=== PATIENT | female | born 1940 | race Caucasian/White ===

== ENCOUNTER 2017-05-04 09:14 | Inpatient (IN) | payer MEDICARE, SELFPAY ==
[2017-05-04] VITALS (7 sets, daily range): BP systolic 124–160; BP diastolic 57–87; PULSE 91–112; RESP 18–26; TEMP 36.7–37.1; O2SAT 95–99; BMI 18.8; BMI 19.2; BMI 18.9
--- NOTE | 2017-05-04 09:27 | EKG12_ITS ---
Test Reason : Blood Pressure : / mmHG Vent. Rate : 094 BPM Atrial Rate : 094 BPM P-R Int : 138 ms QRS Dur : 074 ms QT Int : 346 ms P-R-T Axes : 073 082 078 degrees QTc Int : 432 ms Normal sinus rhythm Normal ECG Confirmed by CARLOS A AC, ANGELA ([id number]), editorial project manager LLOYD VILLAGRAN ([id number]) on 05/09/2017 3:27:13 PM Referred By: CRISTIAN Confirmed By:ANGELA STRAUSS MD
--- NOTE | 2017-05-04 09:27 | RAD_ITS ---
STUDY: X-RAY CHEST REASON FOR EXAM: Female, 76 years old. Cough and shortness of breath. TECHNIQUE: Single AP portable view of the chest. COMPARISON: February 10, 2017. FINDINGS: Cardiac monitoring leads are present. Lungs are hyperexpanded and clear. There is no demonstrated pleural abnormality. Normal size heart. There are calcified mediastinal and hilar lymph nodes. Normal visualized pulmonary arteries. There is atherosclerotic tortuosity of the aortic arch and descending thoracic aorta. There is demineralization of the osseous structures. Normal visualized ribs, clavicles, and shoulders. There is no demonstrated abnormality of the visualized soft tissue structures of the upper abdomen. RAD/Chest 1 View (Portable) IMPRESSION: COPD without radiographic evidence of acute cardiopulmonary disease. Electronically Signed: Alda Solano MD at 10:19 EST , Service support ,
--- NOTE | 2017-05-04 09:32 | ED.DCSUM_ITS ---
- ER Visit Summary Date of Service: 05/04/17 Chief Complaint: Shortness of breath History of Present Illness: The patient is a 76 F with history of COPD who is on 2 L of oxygen at night presents to the emergency department shortness of breath. She states that her symptoms began the day after [place]. She had mild shortness of breath and a scant cough. She states that they called Dr. Lopez, her advertising project manager and she was prescribed a prednisone burst. She is on day 3 of 40 mg. She feels like she is not getting any better. She has been using her inhalers with little relief. She is to the point where she has had to be on oxygen constantly at home. She denies any fevers but does admit to productive sputum. She has had no chest pain. She does describe exertional dyspnea but denies orthopnea. She states that she did have the flu last year, and at that time she was having fevers which she denies today. She did get a flu shot this year. She was concerned because she has had to use her oxygen constantly since her shortness of breath has started. Physical Examination: Vital signs reviewed General: Well-nourished, well-developed Head: Normocephalic, atraumatic Eyes: Pupils equal and reactive, extraocular muscles intact Neck, supple, no lymphadenopathy Heart: Regular rate and rhythm Respiratory: No distress, diminished with wheezing throughout Abdomen: Soft, nontender, nondistended, no peritoneal signs Back: Nontender Extremities: Nontender, no edema, no cords Skin: Normal color no rash Neuro: Alert and oriented, no focal or lateralizing deficits Test Results: Screening labs show mild leukocytosis which I feel is likely reactive especially given her recent prednisone use. Chest x-ray shows no infiltrate. Influenza negative. EKG unremarkable. Cardiac enzymes normal. Lactate normal. Emergency Department Course and Treatment: Patient presents with increasing shortness of breath. She does have a history of COPD but has had constant oxygen requirement over the past 2 days. She has dyspnea with wheezing in all [place]. Patient was given nebulized breathing treatments. She did seem to have almost a paradoxical reaction with the nebulized albuterol with increasing bronchospasm. These were stopped. The patient has persistent resting tachypnea. She has had productive sputum but no fevers or chills. I do feel that she has COPD exacerbation. Given her increased work of breathing and oxygen requirement I do for the patient requires admission. She will be started on Levaquin to cover respiratory pathogens. The patient will be admitted for further respiratory care. Treatment Plan: [] Disposition: Admission Impression: 1. COPD exacerbation This note was generated with [employer] dictation software. It may contain incorrect words, spelling, and punctuation that were not noted in review of the chart prior to signing ED Disposition - Plan for ED Patient: Chief Complaint: Shortness of Breath Referrals: Chicho Garcia DO [Primary Care Provider] -
[2017-05-04] MEDS: 0.9% Normal Saline 1,000 ML 150 ML IV (09:46)
[2017-05-04] MEDS: MethylPREDNISolone 125 MG/2 ML Vial IV (09:46)
[2017-05-04 09:47] LABS: Absolute Lymphocyte Count 0.84 X10^3/ul (0.83-4.51); Absolute Neutrophil Count 13.3 X10^3/uL (2.0-7.7); Basophil# 0.02 X10^3/uL; Basophil% 0.1 % (0-1); Lymphocyte # 0.84 X10^3/ul (4.0); Lymphocyte % 5.6 % (19-41); Mean Corp Hgb Conc 33.3 g/gl (32-36); Mean Corpuscular Hgb 31.2 pg (27.0-32.0); Mean Corpuscular Volume 93.6 fL (81-99); Mean Platelet Vol. 10.4 fl (6.2-12.0); Monocyte# 0.84 X10^3/uL; Monocyte% 5.6 % (0-10); Neutrophil # 13.32 X10^3/uL (2.7-7.7); Neutrophil % 88.2 % (47-70); POSITIVE COUNT NO; POSITIVE DIFFERENTIAL NO; POSITIVE MORPHOLOGY NO; Platelet Count 171 K/mm3 (150-450); RBC Distribution Width CV 13.9 % (11.6-14.6); Red Blood Count 4.81 M/mm3 (4.2-5.4); White Blood Count 15.1 K/mm3 (4.4-11.0)
[2017-05-04] MEDS: Albuterol 2.5 MG/3 ML VIAL.NEB. INHALATION ×3 (09:56)
[2017-05-04] MEDS: Ipratropium/Albuterol Sulfate 3 ML AMPUL.NEB INHALATION (09:56)
[2017-05-04 10:03] LABS: Anion Gap 7 (5-15); BUN 30 mg/dL (7-18); BUN/Creat Ratio 28.6 RATIO (10-20); Calcium,Total 9.5 mg/dL (8.5-10.1); Chloride 100 mmol/L (98-107); Creatinine, Serum 1.05 mg/dL (0.55-1.02); EST Glomerular Filtration Rate 54 mL/min (>60); Est Glom Filt Rate - Afr Amer 65 mL/min (>60); Estimated Creatinine Clearance 32.13 ml/min; Glucose 139 mg/dL (70-110); Sodium Level 135 mmol/L (136-145)
[2017-05-04 10:15] LABS: Lactic Acid 1.7 mmol/L (0.4-2.0)
--- NOTE | 2017-05-04 11:38 | CPS ---
Aerosol treatments. Gave two treatments and stopped after patient C/O bronchospasms. RN and ED Physician aware.
--- NOTE | 2017-05-04 12:12 | PCM.HP.STD ---
Problem List (1) Abnormal pulmonary function test Status: Chronic (2) Costal chondritis Status: Chronic (3) Nasal drainage Status: Chronic (4) Hypersomnia Status: Chronic (5) Dyspnea Status: Chronic (6) Wheezing Status: Chronic History of Present Illness Date of Admission: 05/04/17 Chief Complaint: Progressive shortness of breath and cough This is a 76-year-old female with history of COPD, chronic respiratory failure on home O2 at 2 L/min who presented to the emergency room due to progressive shortness of breath and cough. Symptoms started about a week ago and she did call her associate director of nursing, Dr. Lopez who prescribed prednisone and an antibiotic but her symptoms did not improve and she decided to come to the emergency room. Chest x-ray did not reveal evidence of pneumonia, she was thought to have acute COPD exacerbation, she was started on IV steroids and given bronchodilator therapy. She developed paradoxical bronchospasm with significant wheezing following the bronchodilator therapy, she said this has happened before with nebulized bronchodilators and she does not want to take nebulized bronchodilators any more. Past Medical History Past Medical History (Chronic Problems): Chronic Problems (Last Updated 04/10/17 @ 08:50 by Lovely Buchanan) Abnormal pulmonary function test (Chronic) Cough (Chronic) Hypoxia (Chronic) Costal chondritis (Chronic) Nasal drainage (Chronic) Hypersomnia (Chronic) Dyspnea (Chronic) Wheezing (Chronic) Stage 3 severe COPD by GOLD classification (Chronic) COPD with acute exacerbation (Chronic) Physical deconditioning (Chronic) Pulmonary hypertension (Chronic) Chronic hypoxemic respiratory failure (Chronic) Obstructive sleep apnea (Chronic) on home BiPap machine Interstitial cystitis (Chronic) not currently on medicine Hyperlipidemia (Chronic) Hypertension (Chronic) Hypothyroidism (Chronic) off synthroid due to elevated T4 COPD (chronic obstructive pulmonary disease) (Chronic) Allergies naproxen [From Anaprox] Allergy (Verified 05/04/17 10:07) Hives prochlorperazine [From Compazine] Allergy (Verified 05/04/17 10:07) Hives Sulfa (Sulfonamide Antibiotics) Allergy (Verified 05/04/17 10:07) Hives tramadol [From Ultram] Allergy (Verified 05/04/17 10:07) Rash Home Medications: Ambulatory Orders Medication Instructions Recorded Amlodipine [Norvasc] 5 mg PO DAILY 07/23/16 Atorvastatin Calcium [Lipitor] 20 mg PO QHS 07/23/16 Budesonide/Formoterol 160/4.5 2 puff INHALATION BID 07/23/16 [Symbicort 160/4.5 Mcg Inhaler (SP)] Carvedilol [Coreg (Beta [place])] 12.5 mg PO BID 07/23/16 Albuterol IH (ProAir) [Proair Hfa] 1 - 2 puff INHALATION Q6H PRN PRN 07/28/16 Calcium Carbonate [Calcium] 600 mg PO DAILY 07/28/16 Multivitamin [Multiple Vitamins] 1 ea PO DAILY 07/28/16 Ascorbic Acid [C-1000] 1,000 mg PO DAILY 12/05/16 Lansoprazole [Prevacid] 15 mg PO DAILY 12/05/16 Methenamine Mandelate 1 gm PO DAILY 12/05/16 Oxybutynin [Ditropan] 5 mg PO DAILY 12/05/16 Pentosan Polysulfate Sodium 100 mg PO BID 12/05/16 [Elmiron] mometasone 110 mcg (30 doses) 2 inh INHALATION BID 04/10/17 breath activated powder inhaler benzonatate 100 mg capsule 100 mg PO TID PRN #90 cap 05/03/17 Prednisone 10 mg PO QDAY 05/04/17 Triamterene 75MG/Hctz 50MG 1 mg PO DAILY 05/04/17 Surgical History: - - c/s Psychiatric History: No pertinent psych hx Smoking Status: Never smoker - *Family History Paternal Family History: Family History (Last Updated 04/10/17 @ 08:51 by Lovely Buchanan) Sister Diabetes Brother Diabetes CVA (cerebral vascular accident) History Items: No pertinent history Maternal Family History: Family History (Last Updated 04/10/17 @ 08:51 by Lovely Buchanan) Sister Diabetes Brother Diabetes CVA (cerebral vascular accident) History Items: No pertinent history Review of Systems Constitutional: Reports: Anorexia Comment: All Systems were reviewed with pertinent positives mentioned in the HPI above. VTE Information - Inpt Only VTE Present on Admission: No VTE Mechan Device Prophylaxis: SCD's VTE Pharm Prophylaxis ordered?: Yes - Physical Exam General: Alert, Oriented x3 HEENT: Atraumatic Neck: Supple, No JVD Abdomen: Bowel Sounds Present, Soft, Non Tender Extremities: No edema, Capillary Refill Less than 3 Seconds Skin: No rashes, No breakdown Musculoskeletal: No Tenderness to Palpation of Joints or Extremities Neurological: Cranial nerves II-XII grossly intact Vital Signs Temp Pulse Resp BP Pulse Ox 98.1 F 96 26 H 127/62 H 95 05/04/17 09:15 05/04/17 11:26 05/04/17 11:26 05/04/17 11:26 05/04/17 11:26 Oxygen Flow Rate 2 Oxygen Delivery Method Room Air Weight: 45.359 kg Body Mass Index (BMI) 18.8 Microbiology Past 72 Hours 05/04/17 09:50 Influenza Types A,B Direct FA (DEREK) - Final Mucosa - Nose Laboratory Tests Past 24 Hrs 05/04/17 05/04/17 05/04/17 09:30 09:30 09:30 WBC 15.1 H RBC 4.81 Hgb 15.0 Hct 45.0 MCV 93.6 MCH 31.2 MCHC 33.3 RDW 13.9 RDW Differential 46.0 H Plt Count 171 MPV 10.4 Immature Gran % (Auto) 0.500 Neut % (Auto) 88.2 H Lymph % (Auto) 5.6 L [place] % (Auto) 5.6 Eos % (Auto) 0.0 Baso % (Auto) 0.1 Absolute Neuts (auto) 13.3 H Absolute Lymphs (auto) 0.84 Total Counted Not Reportable Sodium 135 L Potassium 4.0 Chloride 100 Carbon Dioxide 28.0 Anion Gap 7 BUN 30 H Creatinine 1.05 H Estim Creat Clear Calc 32.13 Est GFR (MDRD) Af Amer 65 Est GFR (MDRD) Non-Af 54 L BUN/Creatinine Ratio 28.6 H Glucose 139 H Lactic Acid 1.7 Calcium 9.5 Troponin I < 0.02 B-Natriuretic Peptide 05/04/17 09:50 WBC RBC Hgb Hct MCV MCH MCHC RDW RDW Differential Plt Count MPV Immature Gran % (Auto) Neut % (Auto) Lymph % (Auto) [place] % (Auto) Eos % (Auto) Baso % (Auto) Absolute Neuts (auto) Absolute Lymphs (auto) Total Counted Sodium Potassium Chloride Carbon Dioxide Anion Gap BUN Creatinine Estim Creat Clear Calc Est GFR (MDRD) Af Amer Est GFR (MDRD) Non-Af BUN/Creatinine Ratio Glucose Lactic Acid Calcium Troponin I B-Natriuretic Peptide 25.0 Assessment/Plan 1. Acute COPD exacerbation/acute bronchitis; patient has been started on IV steroids, she will continue her home albuterol MDI and I will add Zithromax. 2. Acute respiratory failure with hypoxia; continue on supplemental oxygen. 3. Essential hypertension; we will resume her home medications without change. 4. DVT prophylaxis with subcutaneous Lovenox. Code Visit Inpatient E&M: 72021 Init Hosp L2
--- NOTE | 2017-05-04 19:02 | NURSING ---
pts home meds sent to pharmacy for verification, mucinex, ditropan xl, symbicort, elmiron, and asthmanex. the advil pm was returned to spouse as dr de la cruz did not want to order that med.
[2017-05-04] MEDS: Carvedilol 12.5 MG Tablet PO (21:35)
[2017-05-04] MEDS: guaiFENesin/D-Methorphan TAB.SR.12H 1 TABLET PO (21:35)
[2017-05-04] MEDS: Atorvastatin Calcium 20 MG Tablet PO (21:36)
[2017-05-04] MEDS: Budesonide/Formoterol Fumarate 10.2 GM Inhaler 2 PUFF INHALATION (21:36)
[2017-05-05 02:24] VITALS: BP 130/56; PULSE 76; RESP 12; TEMP 36.8; O2SAT 94
[2017-05-05 07:39] LABS: Absolute Neutrophil Count 8.3 X10^3/uL (2.0-7.7); Hematocrit 42.4 % (37-47); Hemoglobin 13.7 g/dl (12.0-15.0); Lymphocyte % 5.5 % (19-41); Mean Corp Hgb Conc 32.3 g/gl (32-36); Mean Corpuscular Hgb 30.3 pg (27.0-32.0); Mean Corpuscular Volume 93.8 fL (81-99); Mean Platelet Vol. 10.4 fl (6.2-12.0); Monocyte# 0.22 X10^3/uL; Monocyte% 2.4 % (0-10); Neutrophil # 8.29 X10^3/uL (2.7-7.7); Neutrophil % 91.5 % (47-70); Platelet Count 120 K/mm3 (150-450); RBC Distribution Width CV 13.9 % (11.6-14.6); RBC Distribution Width SD 47.7 fl (35.1-43.9); Red Blood Count 4.52 M/mm3 (4.2-5.4); White Blood Count 9.1 K/mm3 (4.4-11.0)
[2017-05-05 07:42] LABS: Differential Indicated SCAN CRITERIA MET; POSITIVE COUNT NO; POSITIVE DIFFERENTIAL YES; POSITIVE MORPHOLOGY NO
[2017-05-05 09:40] VITALS: BP 126/64; PULSE 98; RESP 20; TEMP 36.8; O2SAT 99
[2017-05-05] MEDS: Budesonide/Formoterol Fumarate 10.2 GM Inhaler 2 PUFF INHALATION ×2 (09:42→21:02)
[2017-05-05] MEDS: Tolterodine Tartrate 2 MG CAP.SA PO (09:43)
[2017-05-05] MEDS: Pantoprazole Sodium 20 MG Tablet PO (09:44)
[2017-05-05] MEDS: Carvedilol 12.5 MG Tablet PO ×2 (09:44→21:00)
[2017-05-05] MEDS: amLODIPine 5 MG Tablet PO (09:44)
[2017-05-05] MEDS: Triamterene 75MG/Hctz 50MG Tablet 1 TABLET PO (09:44)
[2017-05-05] MEDS: Calcium (Elemental) 500 MG Tablet PO (09:44)
[2017-05-05] MEDS: Enoxaparin 40 MG/0.4 ML Syringe SC (09:45)
[2017-05-05] MEDS: Benzonatate 100 MG Capsule PO ×2 (09:49→14:44)
--- NOTE | 2017-05-05 10:37 | PCM.PN.HOSP ---
Subjective: CC: Shortness of breath and cough He presented with shortness of breath and cough and admitted for management of COPD exacerbation. He denies any fever chills, chest pain or palpitations. Vitals/I&O's: Vital Signs Temp Pulse Resp BP Pulse Ox 98.2 F 98 20 H 126/64 H 99 05/05/17 09:40 05/05/17 09:40 05/05/17 09:40 05/05/17 09:40 05/05/17 09:40 Oxygen Flow Rate 2 Oxygen Delivery Method Nasal Cannula Weight: 46.221 kg Body Mass Index (BMI) 19.2 Intake and Output for Last 24 Hours 05/03/17 05/04/17 05/05/17 23:59 23:59 23:59 Intake Total 582 / 582 Output Total 1250 / 1250 Balance -668 / -668 General: Alert, Oriented x3 HEENT: Atraumatic Oral: Moist Mucosa Neck: Supple, No JVD Lungs: - - Scattered wheezing bilaterally Abdomen: Bowel Sounds Present, Non Tender Extremities: No edema Neurological: Cranial nerves II-XII grossly intact Psych/Mental Status: Normal Affect Laboratory Results 05/05/17 06:42: WBC 9.1, RBC 4.52, Hgb 13.7, Hct 42.4, MCV 93.8, MCH 30.3, MCHC 32.3, RDW 13.9, RDW Differential 47.7 H, Plt Count 120 L, MPV 10.4, Immature Gran % (Auto) 0.600, Neut % (Auto) 91.5 H, Lymph % (Auto) 5.5 L, [place] % (Auto) 2.4, Eos % (Auto) 0.0, Baso % (Auto) 0.0, Absolute Neuts (auto) 8.3 H, Absolute Lymphs (auto) 0.50 L, Total Counted Not Reportable Current Medications Albuterol Sulfate (Ventolin Aerosols) 2.5 mg INHALATION Q4H PRN PRN PRN Reason: Wheezing Amlodipine Besylate (Norvasc) 5 mg PO DAILY [facility] Last Admin: 05/05/17 09:44 Dose: 5 mg Atorvastatin Calcium (Lipitor) 20 mg PO QHS [facility] Last Admin: 05/04/17 21:36 Dose: 20 mg Benzonatate (Tessalon Perle) 100 mg PO TID PRN PRN PRN Reason: cough Last Admin: 05/05/17 09:49 Dose: 100 mg Budesonide/Formoterol Fumarate (Symbicort 80-4.5 Mcg Inhaler) 2 puff INHALATION BID [facility] Last Admin: 05/05/17 09:42 Dose: 2 puff Calcium Carbonate (Os-Harshad 500) 500 mg PO DAILY@1200 [facility] Last Admin: 05/05/17 09:44 Dose: 500 mg Carvedilol (Coreg) 12.5 mg PO BID [facility] Last Admin: 05/05/17 09:44 Dose: 12.5 mg Enoxaparin Sodium (Lovenox) 40 mg SC DAILY@1000 [facility] Last Admin: 05/05/17 09:45 Dose: 40 mg Guaifenesin (Humibid Dm) 1 tablet PO QHS [facility] Last Admin: 05/04/17 21:35 Dose: 1 tablet Azithromycin 500 mg/ Dextrose 255 mls @ 250 mls/hr IV Q24 [facility] Stop: 05/07/17 11:02 Last Admin: 05/05/17 09:49 Dose: 250 mls/hr Magnesium Hydroxide (Milk Of Magnesia) 30 ml PO DAILY PRN PRN PRN Reason: Constipation Methylprednisolone (Solu-Medrol) 40 mg IV Q8 [facility] Last Admin: 05/05/17 06:21 Dose: 40 mg Mometasone Furoate (Asmanex 220 Mcg [place]) 440 mcg INHALATION BID [facility] Last Admin: 05/05/17 09:42 Dose: 440 mcg Pantoprazole Sodium (Protonix) 20 mg PO DAILY [facility] Last Admin: 05/05/17 09:44 Dose: 20 mg Pentosan Polysulfate Sodium (Elmiron) 100 mg PO BID [facility] Last Admin: 05/05/17 09:42 Dose: 100 mg Sodium Chloride () 5 - 30 ml IV UD PRN PRN Reason: SALINE FLUSH Tolterodine Tartrate (Detrol La) 2 mg PO DAILY [facility] Last Admin: 05/05/17 09:43 Dose: 2 mg Trazodone HCl (Desyrel) 25 mg PO QHS PRN PRN Reason: sleep aide Triamterene/HCTZ (Maxzide) 1 tablet PO DAILY [facility] Last Admin: 05/05/17 09:44 Dose: 1 tablet Assessment/Plan 1. Acute COPD exacerbation/acute bronchitis; we will continue on IV steroids, continue her home albuterol MDI and Zithromax. 2. Acute on chronic respiratory failure with hypoxia due to COPD; continue on supplemental oxygen. 3. Essential hypertension; we will resume her home medications without change. 4. DVT prophylaxis with subcutaneous Lovenox. 5. Discharge planning
[2017-05-05 13:40] VITALS: O2SAT 96
[2017-05-05 14:41] VITALS: BP 123/70; PULSE 98; RESP 22; TEMP 37; O2SAT 98
[2017-05-05] MEDS: 0.9% NaCl Peripheral Flush Adult/Peds IV (14:45)
--- NOTE | 2017-05-05 17:39 | CASEMGMT ---
Addendum entered by Fany Mena 05/05/17 17:50: Patient states she uses home oxygen at 2 lpm, as needed. She wears a CPAP at night. Patient has a chair lift to the basement, which leads to the garage. Otherwise, one story home. Original Note: Face to Face with patient for initial transition planning/care coordination assessment. RN CM introduced self and role at [facility], pt voices understanding and consents to assessment at this time. Care providers, pharmacy, and demographics verified. See attached link. PLAN: Home with spouse. Lindsey PEREZ, RN CM
[2017-05-05 20:40] VITALS: BP 142/66; PULSE 98; RESP 20; TEMP 37; O2SAT 98
[2017-05-05] MEDS: guaiFENesin/D-Methorphan TAB.SR.12H 1 TABLET PO (21:01)
[2017-05-05] MEDS: Atorvastatin Calcium 20 MG Tablet PO (21:02)
[2017-05-05] MEDS: traZODone 50 MG Tablet 25 MG PO (21:50)
[2017-05-06 02:00] VITALS: O2SAT 97
[2017-05-06 02:21] VITALS: BP 166/63; PULSE 86; RESP 20; TEMP 36.9; O2SAT 97
[2017-05-06 06:47] LABS: Absolute Lymphocyte Count 0.62 X10^3/ul (0.83-4.51); Absolute Neutrophil Count 9.7 X10^3/uL (2.0-7.7); Basophil# 0.01 X10^3/uL; Basophil% 0.1 % (0-1); Hemoglobin 14.4 g/dl (12.0-15.0); Lymphocyte # 0.62 X10^3/ul (4.0); Lymphocyte % 5.8 % (19-41); Mean Corp Hgb Conc 33.5 g/gl (32-36); Mean Corpuscular Volume 92.5 fL (81-99); Mean Platelet Vol. 10.7 fl (6.2-12.0); Monocyte# 0.38 X10^3/uL; Monocyte% 3.5 % (0-10); Neutrophil # 9.72 X10^3/uL (2.7-7.7); Neutrophil % 90.3 % (47-70); Platelet Count 115 K/mm3 (150-450); RBC Distribution Width CV 13.7 % (11.6-14.6); RBC Distribution Width SD 45.1 fl (35.1-43.9); Red Blood Count 4.65 M/mm3 (4.2-5.4); White Blood Count 10.8 K/mm3 (4.4-11.0)
[2017-05-06 06:56] LABS: POSITIVE COUNT NO; POSITIVE DIFFERENTIAL NO; POSITIVE MORPHOLOGY NO
[2017-05-06 08:50] VITALS: BP 152/72; PULSE 93; RESP 18; TEMP 36.2; O2SAT 99
[2017-05-06] MEDS: Calcium (Elemental) 500 MG Tablet PO (08:52)
[2017-05-06] MEDS: Carvedilol 12.5 MG Tablet PO (08:52)
[2017-05-06] MEDS: Budesonide/Formoterol Fumarate 10.2 GM Inhaler 2 PUFF INHALATION (08:52)
[2017-05-06] MEDS: Pantoprazole Sodium 20 MG Tablet PO (08:52)
[2017-05-06] MEDS: Enoxaparin 40 MG/0.4 ML Syringe SC (08:54)
[2017-05-06] MEDS: Triamterene 75MG/Hctz 50MG Tablet 1 TABLET PO (08:54)
[2017-05-06] MEDS: Tolterodine Tartrate 2 MG CAP.SA PO (08:54)
[2017-05-06] MEDS: amLODIPine 5 MG Tablet PO (08:54)
[2017-05-06 10:00] VITALS: O2SAT 98
--- NOTE | 2017-05-06 10:44 | PCM.DC ---
Allergies/Adverse Reactions: Allergies naproxen [From Anaprox] Allergy (Verified 05/04/17 10:07) Hives prochlorperazine [From Compazine] Allergy (Verified 05/04/17 10:07) Hives Sulfa (Sulfonamide Antibiotics) Allergy (Verified 05/04/17 10:07) Hives tramadol [From Ultram] Allergy (Verified 05/04/17 10:07) Rash Medications to take at Discharge Amlodipine [Norvasc] 5 mg PO QHS 07/23/16 Atorvastatin Calcium [Lipitor] 20 mg PO QHS 07/23/16 Budesonide/Formoterol 160/4.5 [Symbicort 160/4.5 Mcg Inhaler (SP)] 2 puff INHALATION BID 07/23/16 Carvedilol [Coreg (Beta [place])] 12.5 mg PO BID 07/23/16 Albuterol IH (ProAir) [Proair Hfa] 1 - 2 puff INHALATION Q6H PRN PRN 07/28/16 Calcium Carbonate [Calcium] 600 mg PO QHS 07/28/16 Multivitamin [Multiple Vitamins] 1 ea PO QHS 07/28/16 Ascorbic Acid [C-1000] 1,000 mg PO DAILY 12/05/16 Lansoprazole [Prevacid] 15 mg PO DAILY 12/05/16 Methenamine Mandelate 1 gm PO DAILY 12/05/16 Pentosan Polysulfate Sodium [Elmiron] 100 mg PO BID 12/05/16 mometasone 110 mcg (30 doses) breath activated powder inhaler 2 inh INHALATION BID 04/10/17 benzonatate 100 mg capsule 100 mg PO TID PRN #90 cap 05/03/17 Excedrin Pm 1 tablet PO QHS 05/04/17 Guaifenesin/Dextromethorphan [Mucinex Dm ER 1,200-60 mg Tab] 1 each PO QHS 05/04/17 Oxybutynin Chloride [Ditropan Xl] 10 mg PO DAILY 05/04/17 Prednisone 10 mg PO QDAY 05/04/17 Triamterene 75MG/Hctz 50MG 1 mg PO DAILY 05/04/17 Azithromycin [Zithromax] 250 mg PO DAILY 3 Days tab 05/06/17 Clonazepam [Klonopin] 0.5 mg PO DAILY PRN PRN #5 tab 05/06/17 The following prescriptions were given: Azithromycin [Zithromax] 250 mg PO DAILY 3 Days tab Clonazepam [Klonopin] 0.5 mg PO DAILY PRN PRN #5 tab PRN Reason: Anxiety Primary Care Physician: Chicho Garcia DO [Primary Care Provider] - In 1 Week
--- NOTE | 2017-05-06 10:50 | PCM.DC.SUM ---
Discharge Date and Diagnosis Date of Admission: 05/04/17 Date of Discharge: 05/06/17 - Secondary Discharge Diagnosis Chronic Problems (Last Updated 04/10/17 @ 08:50 by Lovely Buchanan) Abnormal pulmonary function test (Chronic) Cough (Chronic) Hypoxia (Chronic) Costal chondritis (Chronic) Nasal drainage (Chronic) Hypersomnia (Chronic) Dyspnea (Chronic) Wheezing (Chronic) Stage 3 severe COPD by GOLD classification (Chronic) COPD with acute exacerbation (Chronic) Physical deconditioning (Chronic) Pulmonary hypertension (Chronic) Chronic hypoxemic respiratory failure (Chronic) Obstructive sleep apnea (Chronic) on home BiPap machine Interstitial cystitis (Chronic) not currently on medicine Hyperlipidemia (Chronic) Hypertension (Chronic) Hypothyroidism (Chronic) off synthroid due to elevated T4 COPD (chronic obstructive pulmonary disease) (Chronic) Hospital Course and Treatment Operations: None Summary of Care Provided: This is a 76-year-old female with history of COPD, chronic respiratory failure on home O2 at 2 L/min who presented to the emergency room due to progressive shortness of breath and cough. Symptoms started about a week ago and she did call her finisher map and chart, Dr. Lopez who prescribed prednisone and an antibiotic but her symptoms did not improve and she decided to come to the emergency room. Chest x-ray did not reveal evidence of pneumonia, she was thought to have acute COPD exacerbation, she was started on IV steroids and given bronchodilator therapy. She developed paradoxical bronchospasm with significant wheezing following the bronchodilator therapy, she said this has happened before with nebulized bronchodilators and she does not want to take nebulized bronchodilators any more. She was placed in the hospital and continue on IV steroids bronchodilator and antibiotics and see improved to her baseline. We are discharging her on prednisone and Zithromax, she will follow-up with her primary care doctor and her finisher map and chart as an outpatient. Physical exam at the time of discharge; vital signs were stable. He was alert and oriented to time place and person. He did not appear to be any form of distress. S1 and S2 heard no murmur or gallop Lung exam was clear to auscultation with no adventitious sounds. Abdomen was soft nontender with normal bowel sounds. extremity exam did not reveal any edema, palpable pulses bilaterally. Neurologic exam was grossly intact. Discharge Diet: No Restrictions Home Medications: Medications to take at Discharge Amlodipine [Norvasc] 5 mg PO QHS 07/23/16 Atorvastatin Calcium [Lipitor] 20 mg PO QHS 07/23/16 Budesonide/Formoterol 160/4.5 [Symbicort 160/4.5 Mcg Inhaler (SP)] 2 puff INHALATION BID 07/23/16 Carvedilol [Coreg (Beta [place])] 12.5 mg PO BID 07/23/16 Albuterol IH (ProAir) [Proair Hfa] 1 - 2 puff INHALATION Q6H PRN PRN 07/28/16 Calcium Carbonate [Calcium] 600 mg PO QHS 07/28/16 Multivitamin [Multiple Vitamins] 1 ea PO QHS 07/28/16 Ascorbic Acid [C-1000] 1,000 mg PO DAILY 12/05/16 Lansoprazole [Prevacid] 15 mg PO DAILY 12/05/16 Methenamine Mandelate 1 gm PO DAILY 12/05/16 Pentosan Polysulfate Sodium [Elmiron] 100 mg PO BID 12/05/16 mometasone 110 mcg (30 doses) breath activated powder inhaler 2 inh INHALATION BID 04/10/17 benzonatate 100 mg capsule 100 mg PO TID PRN #90 cap 05/03/17 Excedrin Pm 1 tablet PO QHS 05/04/17 Guaifenesin/Dextromethorphan [Mucinex Dm ER 1,200-60 mg Tab] 1 each PO QHS 05/04/17 Oxybutynin Chloride [Ditropan Xl] 10 mg PO DAILY 05/04/17 Prednisone 10 mg PO QDAY 05/04/17 Triamterene 75MG/Hctz 50MG 1 mg PO DAILY 05/04/17 Azithromycin [Zithromax] 250 mg PO DAILY 3 Days tab 05/06/17 Clonazepam [Klonopin] 0.5 mg PO DAILY PRN PRN #5 tab 05/06/17 Following Prescrptions Were Given to Patient: Azithromycin [Zithromax] 250 mg PO DAILY 3 Days tab Clonazepam [Klonopin] 0.5 mg PO DAILY PRN PRN #5 tab PRN Reason: Anxiety Primary Care Physician: Chicho Garcia DO [Primary Care Provider] - In 1 Week Disposition: Home Patient Condition:: Good Meaningful Use Info Meaningful Use Diagnoses (Choose all that apply): None applicable Code Visit Inpatient E&M: 21114 Disch Hosp
[2017-05-06] MEDS: Benzonatate 100 MG Capsule PO (11:06)
== END 2017-05-06 11:46 | disposition home or self-care (01) | DRG 191 ==
LOC: ED 12:27 → MS2 12:36
PROVIDERS: Admitting Provider Internal Medicine; Emergency Provider Emergency Medicine; Family Provider Preventive Medicine Occupational Medicine; PCP Preventive Medicine Occupational Medicine; Visit Provider Internal Medicine
DX: J44.1 Chronic obstructive pulmonary disease with (acute) exacerbation (principal); J96.11 Chronic respiratory failure with hypoxia; I27.20 Pulmonary hypertension, unspecified; Z99.81 Dependence on supplemental oxygen; I10 Essential (primary) hypertension; G47.33 Obstructive sleep apnea (adult) (pediatric); E78.5 Hyperlipidemia, unspecified; J98.01 Acute bronchospasm
CPT/HCPCS: 36415; 71010; 80048; 83605; 83880; 84484; 85025; 87040; 87804; 93005; 94640; 99285; J7030; A4216

== ENCOUNTER 2017-05-13 14:16 | Inpatient (IN) | payer MEDICARE, SELFPAY ==
[2017-05-13] VITALS (11 sets, daily range): BP systolic 128–183; BP diastolic 70–96; PULSE 80–120; RESP 12–38; TEMP 36.5; O2SAT 83–100; BMI 17.9; BMI 17.7; BMI 17.8
--- NOTE | 2017-05-13 15:03 | RAD_ITS ---
STUDY: X-RAY CHEST REASON FOR EXAM: Female, 76 years old. Shortness of breath TECHNIQUE: Single AP portable view of the chest. COMPARISON: May 09, 2017 FINDINGS: The lungs are again hyperexpanded. Lungs appear clear.. There is no demonstrated pleural abnormality. Normal size heart. Normal mediastinum and gracy. Normal visualized pulmonary arteries. Normal visualized aortic arch and descending thoracic aorta. Normal visualized thoracic spine. There is a stable density of the right shoulder region. There is no demonstrated abnormality of the visualized soft tissue structures of the upper abdomen. RAD/Chest 1 View (Portable) IMPRESSION: No acute disease is demonstrated. Electronically Signed: Rolanda Madrid MD at 16:42 EST , Service support ,
--- NOTE | 2017-05-13 15:04 | EKG12_ITS ---
Test Reason : SOB Blood Pressure : / mmHG Vent. Rate : 112 BPM Atrial Rate : 211 BPM P-R Int : 130 ms QRS Dur : 066 ms QT Int : 334 ms P-R-T Axes : 074 114 087 degrees QTc Int : 455 ms Normal sinus rhythm Left posterior fascicular block Abnormal ECG Confirmed by CARLOS A AC, ANGELA ([id number]), medical editor LLOYD VILLAGRAN ([id number]) on 05/16/2017 4:05:54 PM Referred By: KATHERINE Confirmed By:ANGELA STRAUSS MD
[2017-05-13] MEDS: 0.9% Normal Saline 1,000 ML 150 ML IV (15:23)
[2017-05-13] MEDS: MethylPREDNISolone 125 MG/2 ML Vial IV (15:23)
[2017-05-13] MEDS: 0.9% Normal Saline 1,000 ML 1000 ML IV (15:23)
--- NOTE | 2017-05-13 15:25 | ED.VISSUMM ---
- ER Visit Summary Date of Service: 05/13/17 Chief Complaint: Shortness of breath History of Present Illness: The patient is a 76 F who was admitted at the end of April for COPD. She was seen on Sunday of this past week and was diagnosed with pneumonia on CT. She was placed on Levaquin. She went home states that she has been fine sitting in a chair but as soon as she goes to exert herself such as getting dressed or going to the bathroom she is quite dyspneic. She is on the tail end of a prednisone taper. Currently on prednisone 10 mg a day. She wears 2 L home O2. states she has not had any appetite. She is continued to take her water pill. Physical Examination: 183/96 heart rate of 117 respirations are 38 pulse ox is 99% on 2 L temperature 97.7 Gen: Well-nourished well-developed patient appears weak and frail. Head: Normocephalic atraumatic Eyes: Perrl EOMI ENT: TMs clear no rhinorrhea dry mucous membranes Neck: Supple no lymphadenopathy no JVD nontender CVS: Tachycardia regular rate rhythm no murmurs normal S1-S2 Respiratory: Patient is tachypneic. She has wheezing and rhonchi bilaterally chest nontender Abdomen: Soft nontender nondistended normal bowel sounds no masses Back: Nontender Extremity: Nontender no edema Skin: Normal color no rash Neuro: alert orientated ?3 CN II-XII intact Test Results: EKG shows a sinus rhythm at a rate of 112. Due to respiratory variation the EKG is limited. White count is at 18.7. Troponin less than 0.02. Chest x-ray showed chronic changes. Emergency Department Course and Treatment: Patient was unable to tolerate an aerosol. She received fluids and Solu-Medrol. Plan is admission. Impression: 1. COPD exacerbation 2. Partially treated pneumonia 3. Dehydration This note was generated with [employer] dictation software. It may contain incorrect words, spelling, and punctuation that were not noted in review of the chart prior to signing ED Disposition - Plan for ED Patient: Disposition: Acute Care Hospital [facility] Chief Complaint: Shortness of Breath
--- NOTE | 2017-05-13 15:28 | ED.DCSUM_ITS ---
- ER Visit Summary Date of Service: 05/13/17 Chief Complaint: Shortness of breath History of Present Illness: The patient is a 76 F who was admitted at the end of April for COPD. She was seen on Sunday of this past week and was diagnosed with pneumonia on CT. She was placed on Levaquin. She went home states that she has been fine sitting in a chair but as soon as she goes to exert herself such as getting dressed or going to the bathroom she is quite dyspneic. She is on the tail end of a prednisone taper. Currently on prednisone 10 mg a day. She wears 2 L home O2. states she has not had any appetite. She is continued to take her water pill. Physical Examination: 183/96 heart rate of 117 respirations are 38 pulse ox is 99% on 2 L temperature 97.7 Gen: Well-nourished well-developed patient appears weak and frail. Head: Normocephalic atraumatic Eyes: Perrl EOMI ENT: TMs clear no rhinorrhea dry mucous membranes Neck: Supple no lymphadenopathy no JVD nontender CVS: Tachycardia regular rate rhythm no murmurs normal S1-S2 Respiratory: Patient is tachypneic. She has wheezing and rhonchi bilaterally chest nontender Abdomen: Soft nontender nondistended normal bowel sounds no masses Back: Nontender Extremity: Nontender no edema Skin: Normal color no rash Neuro: alert orientated ?3 CN II-XII intact Test Results: EKG shows a sinus rhythm at a rate of 112. Due to respiratory variation the EKG is limited. White count is at 18.7. Troponin less than 0.02. Chest x-ray showed chronic changes. Emergency Department Course and Treatment: Patient was unable to tolerate an aerosol. She received fluids and Solu-Medrol. Plan is admission. Impression: 1. COPD exacerbation 2. Partially treated pneumonia 3. Dehydration This note was generated with [employer] dictation software. It may contain incorrect words, spelling, and punctuation that were not noted in review of the chart prior to signing ED Disposition - Plan for ED Patient: Disposition: Acute Care Hospital [facility] Chief Complaint: Shortness of Breath
[2017-05-13 15:42] LABS: ALB/GLOB Ratio 0.8 RATIO (0.9-2.4); AST(SGOT) 32 U/L (15-37); Absolute Neutrophil Count 16.2 X10^3/uL (2.0-7.7); Alanine Aminotransfer ALT/SGPT 42 U/L (12-78); Albumin, Serum 3.3 g/dL (3.4-5.0); Alkaline Phosphatase 36 U/L (45-117); Anion Gap 8 (5-15); BUN 49 mg/dL (7-18); BUN/Creat Ratio 35.3 RATIO (10-20); Basophil# 0.02 X10^3/uL; Basophil% 0.1 % (0-1); Chloride 95 mmol/L (98-107); Creatinine, Serum 1.39 mg/dL (0.55-1.02); EST Glomerular Filtration Rate 39 mL/min (>60); Eosinophil# 0.01 X10^3/uL; Eosinophils% 0.1 % (0-5); Est Glom Filt Rate - Afr Amer 47 mL/min (>60); Estimated Creatinine Clearance 23.06 ml/min; Globulin 4.3 g/dL (2.2-4.2); Glucose 172 mg/dL (70-110); Hematocrit 51.1 % (37-47); Hemoglobin 17.5 g/dl (12.0-15.0); Lipase 119 U/L (73-393); Lymphocyte % 4.8 % (19-41); Mean Corp Hgb Conc 34.2 g/gl (32-36); Mean Corpuscular Hgb 30.7 pg (27.0-32.0); Mean Corpuscular Volume 89.6 fL (81-99); Mean Platelet Vol. 10.3 fl (6.2-12.0); Monocyte# 1.46 X10^3/uL; Monocyte% 7.8 % (0-10); Neutrophil # 16.16 X10^3/uL (2.7-7.7); Neutrophil % 86.6 % (47-70); Platelet Count 260 K/mm3 (150-450); Potassium 4.3 mmol/L (3.5-5.1); Protein, Total 7.6 g/dL (6.4-8.2); RBC Distribution Width CV 13.3 % (11.6-14.6); RBC Distribution Width SD 43.3 fl (35.1-43.9); Sodium Level 128 mmol/L (136-145); White Blood Count 18.7 K/mm3 (4.4-11.0)
[2017-05-13 15:45] LABS: POSITIVE COUNT NO; POSITIVE DIFFERENTIAL NO; POSITIVE MORPHOLOGY NO
[2017-05-13 15:49] LABS: Prothrombin Time (Protime)PT. 13.2 SECONDS (11.7-14.9)
[2017-05-13 15:50] LABS: Partial Thromboplast Time 27.6 Seconds (24.1-36.2)
[2017-05-13] MEDS: Ipratropium 0.5 MG/2.5 ML SOLUTION INHALATION (16:01)
--- NOTE | 2017-05-13 16:06 | CPS ---
Pt refused nebulized duoneb and albuterol. Order for nebulized atrovent received and administered to patient. Patient unable to tolerate after 10 seconds.
[2017-05-13 17:10] LABS: Lactic Acid 0.9 mmol/L (0.4-2.0)
[2017-05-13 17:20] LABS: Bacteria 0 SEEN /hpf (None Seen); Mucous, Urine 0 SEEN /hpf (<or=2+); Squamous Epithelial Cells - UA 0 SEEN /hpf (5-10)
[2017-05-13 17:21] LABS: Color, Urine Yellow (Yellow); Glucose, Dipstick Normal (Normal); Ketone-Dipstick Negative (Negative); Leukocyte Esterase-Dipstick 500 /ul (Negative); Nitrite-Dipstick Negative (Negative); Occult Blood-Urine 25 /ul (Negative); Protein-Dipstick 30 mg/dl (Negative); Specific Gravity, Urine 1.015 (1.002-1.030); Urine Bilirubin Dipstick Negative (Negative); Urine Clarity Clear (Clear); Urine Urobilinogen Normal (Normal)
[2017-05-13 17:29] LABS: Red Blood Cells-Urine 0-5 SEEN /hpf (0-5); White Blood Cells 0-5 SEEN /hpf (0-5)
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
[2017-05-13] MEDS: 0.9% Normal Saline 1,000 ML 100 ML IV ×2 (19:02→23:12)
[2017-05-13 19:26] LABS: Thyroid Stim Hormone (TSH) 5.33 uIU/mL (0.358-3.74)
[2017-05-13] MEDS: CLARIFY ORDER NOTE ×2 (20:20→20:21)
[2017-05-13 20:31] LABS: Allen Test POS; Base Excess -2 mmol/L (-2 to +2); Bicarbonate 23.8 mmol/L (22-26); Blood Gas Specimen Type ART; O2 Delivery Device Nasal Can; PO2 100 mmHG (75-100); SITE L Radial; SO2 97 % (95-99); Time Given 2018; Total Carbon Dioxide 25 mmol/L; pH 7.34 (7.35-7.45)
[2017-05-13] MEDS: amLODIPine 5 MG Tablet PO (21:00)
[2017-05-13] MEDS: Atorvastatin Calcium 20 MG Tablet PO (21:00)
[2017-05-13] MEDS: Multivitamins,Therapeutic Tablet 1 TABLET PO (21:00)
[2017-05-13] MEDS: Famotidine 20 MG Tablet PO (21:00)
[2017-05-13] MEDS: Carvedilol 12.5 MG Tablet PO (21:00)
[2017-05-13] MEDS: guaiFENesin 1,200 MG Tablet 1200 MG PO (21:00)
[2017-05-13] MEDS: Heparin Injection 5,000 UNITS/ML Syringe 5000 UNITS SC (21:00)
[2017-05-13] MEDS: Calcium (Elemental) 500 MG Tablet PO (21:00)
[2017-05-13] MEDS: Oseltamivir Phosphate 30 MG Capsule PO (22:46)
[2017-05-13] MEDS: clonazePAM 0.5 MG Tablet PO (22:53)
[2017-05-14] VITALS (18 sets, daily range): BP systolic 113–164; BP diastolic 50–85; PULSE 83–123; RESP 12–32; TEMP 36.3–36.9; O2SAT 98–100
[2017-05-14 02:54] LABS: Hematocrit 41.3 % (37-47); Hemoglobin 14.4 g/dl (12.0-15.0); Mean Corp Hgb Conc 34.9 g/gl (32-36); Mean Corpuscular Hgb 30.6 pg (27.0-32.0); Mean Corpuscular Volume 87.9 fL (81-99); Platelet Count 146 K/mm3 (150-450); RBC Distribution Width CV 13.1 % (11.6-14.6); RBC Distribution Width SD 41.6 fl (35.1-43.9); White Blood Count 8.3 K/mm3 (4.4-11.0)
[2017-05-14 02:57] LABS: Scan Indicated on CBC? Y/N NO
[2017-05-14] MEDS: Heparin Injection 5,000 UNITS/ML Syringe 5000 UNITS SC ×3 (05:28→21:48)
--- NOTE | 2017-05-14 05:55 | RAD_ITS ---
STUDY: X-RAY CHEST REASON FOR EXAM: Female, 76 years old. Shortness of breath, COPD. TECHNIQUE: Frontal and lateral chest. COMPARISON: May 13, 2017. FINDINGS: Lungs are hyperinflated. No focal infiltrates or effusions. No pneumothorax. Normal size heart. Normal mediastinum and gracy. Normal visualized pulmonary arteries. Normal visualized aortic arch and descending thoracic aorta. Normal visualized thoracic spine. Normal visualized ribs, clavicles, and shoulders. There is no demonstrated abnormality of the visualized soft tissue structures of the upper abdomen. RAD/Chest PA and Lateral IMPRESSION: Stable chest, no acute cardiopulmonary disease. COPD. Electronically Signed: Dimitri Kirby MD at 7:58 EST , Service support ,
[2017-05-14 07:02] LABS: Anion Gap 14 (5-15); BUN 38 mg/dL (7-18); BUN/Creat Ratio 44.3 RATIO (10-20); Chloride 99 mmol/L (98-107); Creatinine, Serum 0.86 mg/dL (0.55-1.02); EST Glomerular Filtration Rate 68 mL/min (>60); Est Glom Filt Rate - Afr Amer 82 mL/min (>60); Estimated Creatinine Clearance 36.93 ml/min; Glucose 144 mg/dL (70-110); Potassium 4.5 mmol/L (3.5-5.1); Sodium Level 132 mmol/L (136-145)
--- NOTE | 2017-05-14 08:32 | PCM.CONS.GEN ---
Problem List (1) Influenza A Status: Acute (2) Acute on chronic respiratory failure with hypoxia Status: Acute (3) Stage 3 severe COPD by GOLD classification Status: Chronic (4) Pulmonary hypertension Status: Chronic (5) Chronic hypoxemic respiratory failure Status: Chronic (6) Obstructive sleep apnea Status: Chronic Comment: on home BiPap machine (7) Hyperlipidemia Status: Chronic (8) Hypertension Status: Chronic (9) Hypothyroidism Status: Chronic Comment: off synthroid due to elevated T4 Reason for Consult Date of Consultation: 05/14/17 Reason for Consultation: COPD exacerbation History of Present Illness: The patient is a 76 year old F with past medical history as below, well known to pulmonary, who presented to the ER with complaints of shortness of breath. Patient was just discharged from the hospital May 06 for COPD exacerbation. She was also in the ER on May 09 with complaints of shortness of breath. A CTA of the chest was done at that time which showed patchy alveolar rounded infiltrates in both lower lobes more prominent on the right side with evidence of bronchiectasis. The patient was diagnosed with pneumonia, however stated she wanted to go home. The patient was discharged with Levaquin and she had a prescription for prednisone already at home. She is on chronic oxygen supplementation 2 L per nasal cannula. Patient's reports her dyspnea on exertion worsened and her oxygen saturations were dipping into the 70s, so decided to come back to the ER. She denied any nausea or vomiting, hemoptysis, dizziness, or syncope. She denied any upper respiratory symptoms such as nasal congestion, sinus drainage, or fevers/chills. Vital signs on arrival to the ER were BP 155/80, pulse 95, RR 24, afebrile at 97.7?F, 98% on 2 L. Chest x-ray showed no acute disease, no demonstrated pleural abnormality. Hyperinflation. An influenza rapid swab which was positive for influenza A. She was started on Tamiflu. Blood cultures and respiratory panel were obtained and are pending. The patient was given DuoNeb aerosol, which she did not tolerate. She states it made her more short of breath, which is typical for her. She was also given her albuterol MDI, Solu-Medrol and 2 liters of normal saline. Her IV fluids have since been reduced. She was admitted to the progressive care unit for further management. Recent echocardiogram in March 2017 showed estimated EF 75%, stage I diastolic dysfunction, trivial mitral and tricuspid valve insufficiency, RVSP was estimated at 33 mmHg. Patient was started on Lasix therapy a couple months ago in the pulmonary clinic with improvement in her symptoms. However, secondary to worsening renal function, the Lasix was discontinued. Her primary doctor put her on Maxide. Has been felt the dose was too high, he has been alternating half doses with full dose every other day. Past Medical History Past Medical History (Chronic Problems): Chronic Problems (Last Updated 04/10/17 @ 08:50 by Lovely Buchanan) Costal chondritis (Chronic) Hypersomnia (Chronic) Dyspnea (Chronic) Stage 3 severe COPD by GOLD classification (Chronic) Physical deconditioning (Chronic) Pulmonary hypertension (Chronic) Chronic hypoxemic respiratory failure (Chronic) Obstructive sleep apnea (Chronic) on home BiPap machine Interstitial cystitis (Chronic) not currently on medicine Hyperlipidemia (Chronic) Hypertension (Chronic) Hypothyroidism (Chronic) off synthroid due to elevated T4 Allergies naproxen [From Anaprox] Allergy (Verified 05/13/17 14:20) Hives prochlorperazine [From Compazine] Allergy (Verified 05/13/17 14:20) Hives Sulfa (Sulfonamide Antibiotics) Allergy (Verified 05/13/17 14:20) Hives tramadol [From Ultram] Allergy (Verified 05/13/17 14:20) Rash Home Medications: Ambulatory Orders Medication Instructions Recorded Amlodipine [Norvasc] 5 mg PO QHS 07/23/16 Atorvastatin Calcium [Lipitor] 20 mg PO QHS 07/23/16 Budesonide/Formoterol 160/4.5 2 puff INHALATION BID 07/23/16 [Symbicort 160/4.5 Mcg Inhaler (SP)] Carvedilol [Coreg (Beta [place])] 12.5 mg PO BID 07/23/16 Albuterol IH (ProAir) [Proair Hfa] 1 - 2 puff INHALATION Q6H PRN PRN 07/28/16 Calcium Carbonate [Calcium] 600 mg PO QHS 07/28/16 Multivitamin [Multiple Vitamins] 1 ea PO QHS 07/28/16 Ascorbic Acid [C-1000] 1,000 mg PO DAILY 12/05/16 Lansoprazole [Prevacid] 15 mg PO DAILY 12/05/16 Methenamine Mandelate 1 gm PO DAILY 12/05/16 mometasone 110 mcg (30 doses) 2 inh INHALATION BID 04/10/17 breath activated powder inhaler benzonatate 100 mg capsule 100 mg PO TID PRN #90 cap 05/03/17 Guaifenesin/Dextromethorphan 1 each PO QHS 05/04/17 [Mucinex Dm ER 1,200-60 mg Tab] Oxybutynin Chloride [Ditropan Xl] 5 mg PO DAILY 05/04/17 Prednisone 10 mg PO QDAY 05/04/17 Triamterene 75MG/Hctz 50MG 0.5 mg PO DAILY 05/04/17 Clonazepam [Klonopin] 0.5 mg PO DAILY PRN PRN #5 tab 05/06/17 Pentosan Polysulfate Sodium 100 mg PO BID 05/13/17 [Elmiron] Surgical History: hysterectomy, - - c/s Psychiatric History: Anxiety 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 Denies: Chills, Fever, Night Sweats, Malaise, Weight Change Eyes: Reports: Cataracts. Denies: Blurred vision, Vision Change HEENT: Denies: Difficulty Swallowing, Head Aches, Nasal bleeding, Nasal Congestion, Post Nasal Drip, Sinus Congestion, Sinus Drainage, Sore Throat Cardiovascular: Reports: Orthopnea. Denies: Chest Pain, Chest Tightness, Edema, Light Headedness, Palpitations, Paroxysmal Noc. Dyspnea, Syncope Respiratory: Reports: Cough, Shortness of breath at rest, Shortness of breath upon exertion. Denies: Hemoptysis, Pleuritic Pain, Sputum production, Wheezing Gastrointestinal: Denies: Abdominal Pain, Constipation, Diarrhea, Dyspepsia, Hematemesis, Hematochezia, Nausea, Melena, Vomiting Genitourinary: Denies: Dysuria, Hematuria Musculoskeletal: Denies: Back Pain, Muscle pain Skin: Reports: Dryness. Denies: Rash, Wounds Neurological: Denies: Balance problems, Change in Speech, Confusion, Focal weakness, Numbness, Tingling, Tremor, Seizures Psychiatric: Reports: Anxiety. Denies: Depression Endocrine: Denies: Change in Body Habitus, Polydipsia, Polyuria Hematologic/ Lymphatic: Reports: Easy Bruising, Easy Bleeding. Denies: Adenopathy, Anemia, Hx of blood clot Patient Problems: Active and Suspected Problems (Last Updated 04/10/17 @ 08:50 by Lovely Buchanan) Influenza A (Acute) Acute on chronic respiratory failure with hypoxia (Acute) Subjective: Patient was seen and examined. She does not appear to be in any acute distress. She is on 4 L of oxygen and saturating 100%. Her is at the bedside and answering most of the questions for her. Patient denies any fever chills, nausea, vomiting, or diarrhea. She does note she had a cough a couple days ago, however this is resolved. She has not noticed any significant wheezing. Objective: Clinical Impression(s) from Imaging Studies Chest X-Ray 05/13/17 15:03 IMPRESSION: No acute disease is demonstrated. Electronically Signed: Rolanda Madrid MD at 16:42 EST , Service support , Chest X-Ray 05/14/17 05:55 IMPRESSION: Stable chest, no acute cardiopulmonary disease. COPD. Electronically Signed: Dimitri Kirby MD at 7:58 EST , Service support , - Physical Exam General: Alert, Oriented x3, Cooperative, No apparent distress, - - No conversational dyspnea. HEENT: Atraumatic, - - Hernandez face Oral: Moist Mucosa, No Gingival or Mucosal Lesions/ Ulcerations Neck: Supple, No Nodes, Trachea Midline Lungs: Diminished, Rhonchi - Throughout, Short of Breath, - - No wheezing or rales, no dullness to percussion Cardiovascular: Normal S1, Normal S2, No murmurs, - - Irregular rate/rhythm Abdomen: Bowel Sounds Present, Soft, Non Tender, Distended - Chronic Extremities: No clubbing, No cyanosis, No edema Skin: No rashes, - - face flushed Musculoskeletal: No Tenderness to Palpation of Joints or Extremities Lymphatic: No Cervical, Supraclavicular, or Inguinal Adenopathy Neurological: Cranial nerves II-XII grossly intact, Neuro grossly intact, Motor Exam 5/5 strength throughout Psych/Mental Status: Alert and oriented to time, place, person, mood and affect Vital Signs Temp Pulse Resp BP Pulse Ox 98.5 F 99 18 154/75 H 99 05/14/17 05:35 05/14/17 07:08 05/14/17 05:35 05/14/17 05:35 05/14/17 05:35 Oxygen Flow Rate 3 Oxygen Delivery Method Bi-pap Weight: 42.7 kg Body Mass Index (BMI) 17.7 Intake and Output for Last 24 Hours 05/12/17 05/13/17 05/14/17 23:59 23:59 23:59 Intake Total 629 / 629 604 / 604 Output Total 1250 / 1250 175 / 175 Balance -621 / -621 429 / 429 Microbiology Past 72 Hours 05/13/17 20:08 Influenza Types A,B Direct FA (DEREK) - Final Mucosa - Nose Influenzae A Laboratory Tests Past 24 Hrs 05/13/17 05/13/17 05/13/17 18:25 18:30 20:24 WBC RBC Hgb Hct MCV MCH MCHC RDW RDW Differential Plt Count MPV Specimen Type ART Sample Site L Radial pH 7.34 L Bicarbonate Actual 23.8 POC Total CO2 25 Base Excess -2 O2 Saturation 97 ABG pCO2 44.0 ABG pO2 100 Efra Test POS O2 Delivery Device Nasal Can Liter Flow 3.0 Blood Gas Notified Whom HOSP Blood Gas Notified Time 2017 Sodium Potassium Chloride Carbon Dioxide Anion Gap BUN Creatinine Estim Creat Clear Calc Est GFR (MDRD) Af Amer Est GFR (MDRD) Non-Af BUN/Creatinine Ratio Glucose Calcium Troponin I < 0.02 TSH 5.33 H 05/13/17 05/14/17 05/14/17 21:55 02:10 02:10 WBC 8.3 RBC 4.70 Hgb 14.4 Hct 41.3 MCV 87.9 MCH 30.6 MCHC 34.9 RDW 13.1 RDW Differential 41.6 Plt Count 146 L MPV 10.0 Specimen Type Sample Site pH Bicarbonate Actual POC Total CO2 Base Excess O2 Saturation ABG pCO2 ABG pO2 Efra Test O2 Delivery Device Liter Flow Blood Gas Notified Whom Blood Gas Notified Time Sodium 132 L Potassium 4.5 Chloride 99 Carbon Dioxide 19.0 L Anion Gap 14 BUN 38 H Creatinine 0.86 Estim Creat Clear Calc 36.93 Est GFR (MDRD) Af Amer 82 Est GFR (MDRD) Non-Af 68 BUN/Creatinine Ratio 44.3 H Glucose 144 H Calcium 8.0 L Troponin I < 0.02 < 0.02 TSH 05/14/17 08:10 WBC RBC Hgb Hct MCV MCH MCHC RDW RDW Differential Plt Count MPV Specimen Type Sample Site pH Bicarbonate Actual POC Total CO2 Base Excess O2 Saturation ABG pCO2 ABG pO2 Efra Test O2 Delivery Device Liter Flow Blood Gas Notified Whom Blood Gas Notified Time Sodium Potassium Chloride Carbon Dioxide Anion Gap BUN Creatinine Estim Creat Clear Calc Est GFR (MDRD) Af Amer Est GFR (MDRD) Non-Af BUN/Creatinine Ratio Glucose Calcium Troponin I Pending TSH Assessment/Plan Active and Suspected Problems (Last Updated 04/10/17 @ 08:50 by Lovely Buchanan) Influenza A (Acute) Acute on chronic respiratory failure with hypoxia (Acute) RECOMMENDATIONS 1. Wean oxygen supplementation to keep saturations 88-92%. 2. Encourage incentive spirometer and Acapella 3. Increase activity as tolerated 4. Continue inhalers as ordered, pt does not tolerate aerosols 5. Continue IV steroids 6. Droplet precautions, continue Tamiflu 7. Obtain sputum, treat as indicated 8. BiPAP at night and with naps 9. Walking oximetry prior to discharge 10. Close follow-up in the pulmonary clinic after discharge IMPRESSIONS 1. Acute hypoxic respiratory failure secondary to COPD exacerbation secondary to influenza A Patient was recently treated for COPD exacerbation/pneumonia as evidenced on CTA of the chest last week when she presented to the ER. Imaging completed to rule out PE. Showed patchy alveolar infiltrates in both lower lobes more prominent on the right with evidence of bronchiectasis. She has been on Levaquin and a prednisone taper as an outpatient, her current dose was 10 mg per day. Patient does have issues with bronchiectasis at times. Patient initially had a leukocytosis of 18,000, however today this is resolved. Her blood cultures and respiratory panel are pending. She was positive for influenza A via rapid influenza screening. Patient was advised she will likely have a protracted course given her baseline lung function and comorbidities, she and her both acknowledged understanding. Would decrease her IV fluids as she is very sensitive to fluid balance, she is being diuresed at home with Maxide, recently switched from Lasix. The initiation of a diuretic has improved her breathing overall in the past. states he has been adjusting her dose at home, typically gets her a full dose every other day alternating with half doses. Monitor renal function, stable for now. Continue Ventolin scheduled and as needed, Symbicort, IV steroids. Increase activity as tolerated and encourage incentive spirometer and Acapella given her history of bronchiectasis. Obtain sputum specimen. She does have a baseline requirement of 2-3 L. She is currently 100% on 4 L. Continue to wean oxygen as tolerated to keep saturations 88-92%. 2. Obstructive sleep apnea Patient tolerating BiPAP therapy intermittently, does get somewhat anxious at times with coughing and has to take the mask off. She did bring in her home unit, however apparently the mask is broke. She is using the hospital's BiPAP machine until this can be fixed. She was having issues with leaking, however and her last pulmonary visit this was resolved. 3. Pulmonary hypertension Her last echocardiogram in March 2017 showed improvement in RVSP. She seems to be responding well to diuretic therapy and has been compliant with her oxygen and BiPAP at home. 4. Hyponatremia Gentle IVF replacement. Check BMP in a.m. 5. Hyperlipidemia/hypertension/hypothyroidism/deconditioning/chronic cystitis/advanced age Complicates care, management, recovery, and prognosis. Okay to continue her home medications as indicated. Management per hospitalist. Patient does take Elmiron, methenamine mandelate, and oxybutynin chronically for her cystitis. Thank you for the opportunity to participate in this patient's care, please do not hesitate to contact us with any further questions or concerns. This note was generated with [employer] software. It may contain incorrect words, spelling, and punctuation that were not noted in checking the note before signing.
[2017-05-14] MEDS: Ascorbic Acid 500 MG Tablet 1000 MG PO (08:55)
[2017-05-14] MEDS: Tolterodine Tartrate 2 MG CAP.SA PO (08:56)
[2017-05-14] MEDS: Carvedilol 12.5 MG Tablet PO ×2 (08:56→21:48)
[2017-05-14] MEDS: guaiFENesin 1,200 MG Tablet 1200 MG PO ×2 (09:01→21:48)
[2017-05-14] MEDS: Oseltamivir Phosphate 30 MG Capsule PO (09:02)
[2017-05-14] MEDS: Famotidine 20 MG Tablet PO (09:02)
--- NOTE | 2017-05-14 10:17 | PN_ITS ---
<Lovely Pollock - Last Filed: 05/14/17 10:24> Subjective: Patient seen and examined. Resting in bed, mildly dyspneic. Denies cough. Denies fever, chills. Patient states breathing is not much improved since admission. Denies other complaints. - Physical Exam General: Alert, Oriented x3, Cooperative, - - Appears mildly dyspneic HEENT: Atraumatic, PERRLA, EOMI, Normocephalic Oral: Dry Mucosa Neck: Supple, No JVD, Negative Carotid Bruits Lungs: Clear to auscultation, Diminished Cardiovascular: Normal S1, Normal S2, No murmurs, Tachycardic Abdomen: Bowel Sounds Present, Soft, Non Tender, Non-Distended Extremities: No clubbing, No cyanosis, No edema, Capillary Refill Less than 3 Seconds Skin: No rashes, No breakdown Musculoskeletal: No Tenderness to Palpation of Joints or Extremities Neurological: Cranial nerves II-XII grossly intact, Neuro grossly intact Psych/Mental Status: Normal Affect, Appropriate Vital Signs Temp Pulse Resp BP Pulse Ox 98.3 F 105 H 32 H 145/65 H 100 05/14/17 08:49 05/14/17 08:49 05/14/17 08:49 05/14/17 08:49 05/14/17 08:49 Oxygen Flow Rate 4 Oxygen Delivery Method Nasal Cannula Weight: 42.7 kg Body Mass Index (BMI) 17.7 Intake and Output for Last 24 Hours 05/12/17 05/13/17 05/14/17 23:59 23:59 23:59 Intake Total 629 / 629 604 / 604 Output Total 1250 / 1250 175 / 175 Balance -621 / -621 429 / 429 Microbiology Past 72 Hours 05/13/17 20:08 Influenza Types A,B Direct FA (DEREK) - Final Mucosa - Nose Influenzae A Laboratory Tests Past 24 Hrs 05/13/17 05/13/17 05/13/17 18:25 18:30 20:24 WBC RBC Hgb Hct MCV MCH MCHC RDW RDW Differential Plt Count MPV Specimen Type ART Sample Site L Radial pH 7.34 L Bicarbonate Actual 23.8 POC Total CO2 25 Base Excess -2 O2 Saturation 97 ABG pCO2 44.0 ABG pO2 100 Efra Test POS O2 Delivery Device Nasal Can Liter Flow 3.0 Blood Gas Notified Whom HOSP Blood Gas Notified Time 2017 Sodium Potassium Chloride Carbon Dioxide Anion Gap BUN Creatinine Estim Creat Clear Calc Est GFR (MDRD) Af Amer Est GFR (MDRD) Non-Af BUN/Creatinine Ratio Glucose Calcium Troponin I < 0.02 TSH 5.33 H 05/13/17 05/14/17 05/14/17 21:55 02:10 02:10 WBC 8.3 RBC 4.70 Hgb 14.4 Hct 41.3 MCV 87.9 MCH 30.6 MCHC 34.9 RDW 13.1 RDW Differential 41.6 Plt Count 146 L MPV 10.0 Specimen Type Sample Site pH Bicarbonate Actual POC Total CO2 Base Excess O2 Saturation ABG pCO2 ABG pO2 Efra Test O2 Delivery Device Liter Flow Blood Gas Notified Whom Blood Gas Notified Time Sodium 132 L Potassium 4.5 Chloride 99 Carbon Dioxide 19.0 L Anion Gap 14 BUN 38 H Creatinine 0.86 Estim Creat Clear Calc 36.93 Est GFR (MDRD) Af Amer 82 Est GFR (MDRD) Non-Af 68 BUN/Creatinine Ratio 44.3 H Glucose 144 H Calcium 8.0 L Troponin I < 0.02 < 0.02 TSH 05/14/17 08:10 WBC RBC Hgb Hct MCV MCH MCHC RDW RDW Differential Plt Count MPV Specimen Type Sample Site pH Bicarbonate Actual POC Total CO2 Base Excess O2 Saturation ABG pCO2 ABG pO2 Efra Test O2 Delivery Device Liter Flow Blood Gas Notified Whom Blood Gas Notified Time Sodium Potassium Chloride Carbon Dioxide Anion Gap BUN Creatinine Estim Creat Clear Calc Est GFR (MDRD) Af Amer Est GFR (MDRD) Non-Af BUN/Creatinine Ratio Glucose Calcium Troponin I < 0.02 TSH Assessment/Plan Patient is a 76-year-old female admitted on 05/13/17 due to persistent shortness of breath. Patient follows with Dr. Lopez for COPD. She was recently admitted May 04, 2017 for exacerbation of COPD. She then returned to the emergency room shortly after on 05/09/2017 due to continued shortness of breath. She was discharged in the emergency room at that time with oral Levaquin and prednisone taper. Again, patient did not note any improvement of symptoms. Patient chronically wears 2 L nasal cannula continuously at home. Her other past medical history includes hypothyroidism, hypertension, hyperlipidemia, interstitial cystitis, obstructive sleep apnea, GERD. 1. Acute COPD exacerbation secondary to acute influenza A-recently treated for pneumonia with oral levaquin. Chest x-ray this admission shows no acute disease. Patient was started on Tamiflu and will complete 5 day course. Continue IV Solu-Medrol. Albuterol and DuoNeb treatments. IV fluids. Dr. Lopez, pulmonary consulted. Patient had leukocytosis on admission which has since resolved. Continue supplemental oxygen to maintain O2 at or above 90%. Blood cultures pending. 2. Acute hypoxia on chronic hypoxic respiratory failure secondary to #1-wears 2 L nasal cannula at baseline. Oxygen 100% on 4 L nasal cannula. Titrate oxygen to maintain O2 at or above 90%. BiPAP at bedtime and as needed. 3. Acute kidney injury-suspect secondary to poor oral intake. Resolved with IV fluids. Monitor BMP. 4. Severe protein calorie malnutrition-BMI 17.9. Albumin 0.8. Consult nutrition. 5. Obstructive sleep apnea-continue home BiPAP at bedtime. 6. Hyperlipidemia-continue statin. 7. Hypertension-stable, continue home regimen including carvedilol, amlodipine. Triamterene/HCTZ on hold due to RALF. 8. Hypothyroidism-not on home Synthroid. TSH 5.33. 9. General physical deconditioning-PT/OT. Nutrition consult as noted above. 10. Anxiety-continue home Klonopin regimen. 11. GERD-continue Prevacid. 12. Overactive bladder-continue oxybutynin, elmiron. 13. Pulmonary hypertension-patient was prescribed Lasix in December by Dr. Lopez for pulmonary hypertension. Patient states this improved her symptoms greatly however Lasix was discontinued due to poor kidney function. BIPAP HS. Patient may benefit from intermittent low-dose Lasix regimen. Patient's previous echocardiogram in 2014 showed an EF of 65% and mild pulmonary hypertension, RVSP 42. Systolic function was noted to be normal. DVT prophylaxis-heparin subcu. This patient was seen by MATTHEW Estrada under the supervision of Dr. Ohara. <Lesly Ohara - Last Filed: 05/14/17 16:03> - Physical Exam Vital Signs Temp Pulse Resp BP Pulse Ox 97.7 F L 107 H 20 H 135/57 H 100 05/14/17 13:03 05/14/17 13:07 05/14/17 13:07 05/14/17 13:03 05/14/17 13:03 Oxygen Flow Rate 4 Oxygen Delivery Method Nasal Cannula Weight: 94 lb 2.198 oz Body Mass Index (BMI) 17.7 Intake and Output for Last 24 Hours 05/12/17 05/13/17 05/14/17 23:59 23:59 23:59 Intake Total 629 / 629 1118 / 1118 Output Total 1250 / 1250 575 / 575 Balance -621 / -621 543 / 543 Microbiology Past 72 Hours 05/13/17 20:08 Respiratory Panel (PCR) - Final Mucosa - Nose Influenza A (Subtype H3) 05/13/17 20:08 Influenza Types A,B Direct FA (DEREK) - Final Mucosa - Nose Influenzae A Laboratory Tests Past 24 Hrs 05/13/17 05/13/17 05/13/17 18:25 18:30 20:24 WBC RBC Hgb Hct MCV MCH MCHC RDW RDW Differential Plt Count MPV Specimen Type ART Sample Site L Radial pH 7.34 L Bicarbonate Actual 23.8 POC Total CO2 25 Base Excess -2 O2 Saturation 97 ABG pCO2 44.0 ABG pO2 100 Efra Test POS O2 Delivery Device Nasal Can Liter Flow 3.0 Blood Gas Notified Whom HOSP MD Blood Gas Notified Time 2017 Sodium Potassium Chloride Carbon Dioxide Anion Gap BUN Creatinine Estim Creat Clear Calc Est GFR (MDRD) Af Amer Est GFR (MDRD) Non-Af BUN/Creatinine Ratio Glucose Calcium Troponin I < 0.02 TSH 5.33 H 05/13/17 05/14/17 05/14/17 21:55 02:10 02:10 WBC 8.3 RBC 4.70 Hgb 14.4 Hct 41.3 MCV 87.9 MCH 30.6 MCHC 34.9 RDW 13.1 RDW Differential 41.6 Plt Count 146 L MPV 10.0 Specimen Type Sample Site pH Bicarbonate Actual POC Total CO2 Base Excess O2 Saturation ABG pCO2 ABG pO2 Efra Test O2 Delivery Device Liter Flow Blood Gas Notified Whom Blood Gas Notified Time Sodium 132 L Potassium 4.5 Chloride 99 Carbon Dioxide 19.0 L Anion Gap 14 BUN 38 H Creatinine 0.86 Estim Creat Clear Calc 36.93 Est GFR (MDRD) Af Amer 82 Est GFR (MDRD) Non-Af 68 BUN/Creatinine Ratio 44.3 H Glucose 144 H Calcium 8.0 L Troponin I < 0.02 < 0.02 TSH 05/14/17 08:10 WBC RBC Hgb Hct MCV MCH MCHC RDW RDW Differential Plt Count MPV Specimen Type Sample Site pH Bicarbonate Actual POC Total CO2 Base Excess O2 Saturation ABG pCO2 ABG pO2 Efra Test O2 Delivery Device Liter Flow Blood Gas Notified Whom Blood Gas Notified Time Sodium Potassium Chloride Carbon Dioxide Anion Gap BUN Creatinine Estim Creat Clear Calc Est GFR (MDRD) Af Amer Est GFR (MDRD) Non-Af BUN/Creatinine Ratio Glucose Calcium Troponin I < 0.02 TSH Assessment/Plan Hospitalist note: I am seeing this patient in conjunction with Lovely Pollock. I independently seen and examined the patient. Progress note above, laboratory data and imaging studies reviewed. I agree with above treatment plan. Patient was admitted for worsening shortness of breath, found to have acute COPD exacerbation triggered by influenza a and context of recent history of pneumonia that was treated with oral Levaquin. Patient reported mild improvement of her symptoms, still requiring oxygen up to 4 L of oxygen. At home, she has been on 2 L. Her other vitals are stable. - Physical Exam General: Alert, Oriented x3, Cooperative, mildly short of breath. HEENT: Atraumatic, PERRLA, EOMI. Neck: Supple, No JVD, Negative Carotid Bruits, Trachea Midline, Thyroid Normal. Lungs: Decreased breath sounds bilaterally, more at the bases, No rhonchi, No wheeze, No rales. Cardiovascular: Regular rate, Regular Rhythm, Normal S1, Normal S2, PMI Normal. Abdomen: Bowel Sounds Present, Soft, Non Tender, Non-Distended, No Hepato- splenomegaly. Extremities: No clubbing, No cyanosis, No edema Skin: No rashes, No breakdown Neurological: Neuro grossly intact. Assessment and plan: #1 acute COPD exacerbation: Triggered by influenza A in addition to recent history of pneumonia that was treated with Levaquin, completed. She is on bronchodilators and IV steroids. On Tamiflu for influenza A. Plan to continue same treatment, wean off oxygen as tolerated. #2 acute on chronic hypoxic respiratory failure: Secondary to above. At home, she has been on 2 L. At this time, she is up to 4 L, plan as above. #3 influenza A: Continue Tamiflu. #4 acute kidney injury: Secondary to dehydration, poor oral intake. She was on IV fluids, gentle hydration, kidney function improved. #5 other chronic medical problems: Hyperlipidemia, hypertension, hypothyroidism , GERD, obstructive sleep apnea, continue current medications. This note was generated with Pandor[employer] dictation software. It may contain incorrect words, spelling, and punctuation that were not noted in checking the note before signing. Code Visit Inpatient E&M: 07299 Subs Hosp L2
[2017-05-14] MEDS: 0.9% Normal Saline 1,000 ML 50 ML IV (11:16)
[2017-05-14] MEDS: clonazePAM 0.5 MG Tablet PO (13:13)
--- NOTE | 2017-05-14 13:56 | CASEMGMT ---
Face to Face with patient for initial transition planning/care coordination assessment. RN SALOME introduced self and role at [facility], pt/ voice understanding and consent to assessment at this time. Pt sitting up in bed with labored respirations at this time. Pt A/O x4 at this time and answers all questions appropriately at this time. Care providers, pharmacy, and demographics verified. See attached link. Pt/ voice no further concerns/needs at this time. Advised pt/ to ask for CM if any further questions/concerns/needs arise, voice understanding. Referral to for SNF placement at this time. PLAN: JOSE M Steinberg RN, CM
--- NOTE | 2017-05-14 14:35 | CASEMGMT ---
This RN CM provided pt's with list of local in-network senior living facilities at this time. states would like [facility] but has been told that they are now out of network for pt. Maryan GEORGE CM
--- NOTE | 2017-05-14 14:57 | CASEMGMT ---
Social Work Face to face with the pt and his to discuss discharge planning. Introduced self and role at [facility]. The pt and her spouse, Chalino, had been provided with a list of in network facilities. Pt has been to [facility] in the past, but they are no longer in network with [facility]. States that he has a friend presently in [facility] [place] and they are not pleased. Expresses interest in [facility] and inform that according to the SW on this unit has been in touch with them and they presently do not have any beds. Pt reviews list and states that his daughter in law was in [place] and was not pleased. Requests that this SW check how close [facility] is to their home and their rating. Provide Chalino with a mapquest for his address to the SNFs address. Rating is 3/5 stars. Chalino states that he believes is sister was in there in the past and he would like to speak with her before making a determination. Provides verbal permission for SW to check on bed availability and send initial referral, but to not initiate a referral yet. Informed that SW will check back in the morning to confirm. Placed call to [facility] and they confirm that they have bed availability. Will fax initial referral to [facility] at [phone]. Spoke with ARIEL MCMAHON to see if anyone checked to verify that [facility] was out of network. Placed call to [facility] and data base administrator confirms that they have not managed to obtain a contract with them this year. States that they could still take if the pt's in and out of network benefit for SNF is the same. Placed call to [facility] to confirm SNF benefits. Spoke with Mabel, sales representative raw fibers, at [phone], reference number: [id number]. According to Mabel the pt's in network benefit is to be covered at 100% for days 1-100 pending pre-certification with a $150 deductible which applies to the out of pocket expense of $1000/member. Out of network would be 80% coverage for days 1-100 and a $500 deductible which applies to the out of pocket expense of $2500/member. Pt's spouse, Chalino, comes out to nursing station and states that he spoke with his friend and they would like to seek placement at [facility] before [facility]. Initial referral to [facility] withheld at this time. Placed call to [facility] and left vm for Leora Rae indicating incoming referral. Initial referral faxed and SW to await phone call with determination. Plan: SNF pending acceptance and pre-cert. SNOW CastroW
--- NOTE | 2017-05-14 16:31 | CHAPLAIN ---
Type of Pastoral Visit _x__ Initial Visit ___ Follow-up Visit ___ On-call Visit ___ General Patient Visit ___ Spiritual Assessment ___ Family Conference ___ Bereavement ___ Rapid Response ___ Code Blue ___ Other (describe below) Pastoral Care Referral From _x__ Patient ___ Family ___ Nurse ___ Physician ___ Bilingual Sales Assistant ___ Publicist ___ Other (describe below) Sacrament/Intervention ___ Active listening ___ Anointing ___ Rastafarian ___ Bereavement ___ Communion ___ Nicole exploration ___ ___ Life review _x__ Prayer ___ Reconciliation ___ Sacrament of Sick _x__ Supportive presence ___ Wedding ___ Other (describe below) Pastoral Comments spouse is with patient; spouse did the talking as pt is experiencing copd and pneumonia; pt nods her head that she would like a prayer; offer to let pt rest is accepted too; workforce planning analyst of pt has been in to see pt this morning as well
[2017-05-14] MEDS: amLODIPine 5 MG Tablet PO (21:48)
[2017-05-14] MEDS: Calcium (Elemental) 500 MG Tablet PO (21:48)
[2017-05-14] MEDS: Multivitamins,Therapeutic Tablet 1 TABLET PO (21:48)
[2017-05-14] MEDS: Atorvastatin Calcium 20 MG Tablet PO (21:48)
[2017-05-15] VITALS (21 sets, daily range): BP systolic 127–164; BP diastolic 59–80; PULSE 83–112; RESP 12–36; TEMP 36.2–36.9; O2SAT 95–100
[2017-05-15] MEDS: Heparin Injection 5,000 UNITS/ML Syringe 5000 UNITS SC ×3 (05:46→22:23)
[2017-05-15 07:49] LABS: Hematocrit 40.8 % (37-47); Hemoglobin 13.6 g/dl (12.0-15.0); Mean Corp Hgb Conc 33.3 g/gl (32-36); Mean Corpuscular Volume 89.9 fL (81-99); Mean Platelet Vol. 9.5 fl (6.2-12.0); Platelet Count 124 K/mm3 (150-450); RBC Distribution Width CV 13.4 % (11.6-14.6); RBC Distribution Width SD 43.6 fl (35.1-43.9); Red Blood Count 4.54 M/mm3 (4.2-5.4); White Blood Count 9.5 K/mm3 (4.4-11.0)
[2017-05-15 07:53] LABS: Scan Indicated on CBC? Y/N NO
[2017-05-15 08:02] LABS: Anion Gap 9 (5-15); BUN 35 mg/dL (7-18); BUN/Creat Ratio 42.7 RATIO (10-20); Calcium,Total 8.5 mg/dL (8.5-10.1); Chloride 104 mmol/L (98-107); Creatinine, Serum 0.82 mg/dL (0.55-1.02); EST Glomerular Filtration Rate 72 mL/min (>60); Est Glom Filt Rate - Afr Amer 87 mL/min (>60); Estimated Creatinine Clearance 38.73 ml/min; Glucose 150 mg/dL (70-110); Potassium 4.1 mmol/L (3.5-5.1); Sodium Level 136 mmol/L (136-145)
--- NOTE | 2017-05-15 08:22 | PCM.PROGNOTE ---
Patient Problems: Active and Suspected Problems (Last Updated 04/10/17 @ 08:50 by Lovely Buchanan) Influenza A (Acute) Acute on chronic respiratory failure with hypoxia (Acute) Subjective: Patient seen and examined. She is attempting to eat some toast this morning. She remains hemodynamically stable and afebrile. Signs have remained stable. She is maintaining appropriate oxygen saturations on 3 L per nasal cannula. reports she wore BiPAP overnight and slept the entire night, she feels more rested this morning. She does have an intermittent nonproductive cough. Patient notes an increase in her bilateral hand edema today. She has no lower extremity edema. - Physical Exam General: Alert, Oriented x3, Cooperative, - - mild SOB/tachypnea, mouth breathing. HEENT: Atraumatic, Normocephalic Oral: Moist Mucosa, No Gingival or Mucosal Lesions/ Ulcerations Neck: Supple, No Nodes, Trachea Midline Lungs: No rhonchi, No wheeze, No rales, Diminished, Short of Breath Cardiovascular: Regular rate, Regular Rhythm, Normal S1, Normal S2 Abdomen: Bowel Sounds Present, Soft, Non Tender Extremities: No cyanosis, No Calf Tenderness, Edema - Bilateral hands Skin: No rashes, No breakdown, - - face flushed Musculoskeletal: No Tenderness to Palpation of Joints or Extremities Lymphatic: No Cervical, Supraclavicular, or Inguinal Adenopathy Neurological: Neuro grossly intact Psych/Mental Status: Alert and oriented to time, place, person, mood and affect Vital Signs Temp Pulse Resp BP Pulse Ox 97.1 F L 85 20 H 136/70 H 100 05/15/17 05:45 05/15/17 06:58 05/15/17 05:45 05/15/17 05:45 05/15/17 05:45 Oxygen Flow Rate 3 Oxygen Delivery Method Bi-pap Weight: 94 lb 2.198 oz Body Mass Index (BMI) 17.7 Intake and Output for Last 24 Hours 05/13/17 05/14/17 05/15/17 23:59 23:59 23:59 Intake Total 629 / 629 1433 / 1433 678 / 678 Output Total 1250 / 1250 825 / 825 400 / 400 Balance -621 / -621 608 / 608 278 / 278 Microbiology Past 72 Hours 05/13/17 20:08 Respiratory Panel (PCR) - Final Mucosa - Nose Influenza A (Subtype H3) 05/13/17 20:08 Influenza Types A,B Direct FA (DEREK) - Final Mucosa - Nose Influenzae A Laboratory Tests Past 24 Hrs 05/14/17 05/15/17 05/15/17 08:10 07:15 07:15 WBC 9.5 RBC 4.54 Hgb 13.6 Hct 40.8 MCV 89.9 MCH 30.0 MCHC 33.3 RDW 13.4 RDW Differential 43.6 Plt Count 124 L MPV 9.5 Sodium 136 Potassium 4.1 Chloride 104 Carbon Dioxide 23.0 Anion Gap 9 BUN 35 H Creatinine 0.82 Estim Creat Clear Calc 38.73 Est GFR (MDRD) Af Amer 87 Est GFR (MDRD) Non-Af 72 BUN/Creatinine Ratio 42.7 H Glucose 150 H Calcium 8.5 Troponin I < 0.02 Assessment/Plan Active and Suspected Problems (Last Updated 04/10/17 @ 08:50 by Lovely Buchanan) Influenza A (Acute) Acute on chronic respiratory failure with hypoxia (Acute) RECOMMENDATIONS 1. Wean oxygen supplementation to keep saturations 88-92%. 2. Encourage incentive spirometer and Acapella 3. Increase activity as tolerated, continue PT 4. Continue inhalers as ordered, pt does not tolerate aerosols 5. Continue IV steroids, likely okay to transition to oral steroids tomorrow 6. Droplet precautions, continue Tamiflu 7. Obtain sputum if cough becomes productive 8. BiPAP at night and with naps 9. Walking oximetry prior to discharge 10. Close follow-up in the pulmonary clinic after discharge IMPRESSIONS 1. Acute hypoxic respiratory failure secondary to COPD exacerbation secondary to influenza A Patient was recently treated for COPD exacerbation/pneumonia as evidenced on CTA of the chest last week when she presented to the ER. Imaging completed to rule out PE. Showed patchy alveolar infiltrates in both lower lobes more prominent on the right with evidence of bronchiectasis. She has been on Levaquin and a prednisone taper as an outpatient. No current leukocytosis. Her blood cultures are pending, infectious etiology unlikely. She was positive for influenza A -subtype H3. Patient was advised she will likely have a protracted course given her baseline lung function and comorbidities, she and her both acknowledged understanding. Patient's diuretic was not continued upon her admission. The initiation of a diuretic has improved her breathing overall in the past. She does have a baseline requirement of 2-3 L. Plan: Given her increase upper extremity edema today, would reintroduce diuresis. Monitor renal function, stable for now. Continue Ventolin scheduled and as needed, Symbicort, IV steroids--likely okay to transition to oral tomorrow. Increase activity as tolerated and encourage incentive spirometer and Acapella given her history of bronchiectasis. Obtain sputum specimen if cough becomes productive. Patient currently maintaining saturations on her baseline oxygen requirement of 3 L. Continue to wean oxygen as tolerated to keep saturations 88-92%. 2. Obstructive sleep apnea Patient tolerating BiPAP therapy intermittently, does get somewhat anxious at times with coughing and has to take the mask off. She did bring in her home unit, however apparently the mask is broke. She is using the hospital's BiPAP machine until this can be fixed. She was having issues with leaking, however and her last pulmonary visit this was resolved. 3. Pulmonary hypertension Her last echocardiogram in March 2017 showed improvement in RVSP. She seems to be responding well to diuretic therapy and has been compliant with her oxygen and BiPAP at home. 4. Hyponatremia Gentle IVF replacement. Check BMP in a.m. 5. Hyperlipidemia/hypertension/hypothyroidism/deconditioning/chronic cystitis/advanced age Complicates care, management, recovery, and prognosis. Okay to continue her home medications as indicated. Management per hospitalist. Patient does take Elmiron, methenamine mandelate, and oxybutynin chronically for her cystitis. Thank you for the opportunity to participate in this patient's care, please do not hesitate to contact us with any further questions or concerns. This note was generated with [employer] dictation software. It may contain incorrect words, spelling, and punctuation that were not noted in checking the note before signing.
[2017-05-15] MEDS: guaiFENesin 1,200 MG Tablet 1200 MG PO (09:53)
[2017-05-15] MEDS: Carvedilol 12.5 MG Tablet PO ×2 (09:53→22:23)
[2017-05-15] MEDS: Ascorbic Acid 500 MG Tablet 1000 MG PO (09:53)
[2017-05-15] MEDS: Oseltamivir Phosphate 30 MG Capsule PO (09:53)
[2017-05-15] MEDS: Tolterodine Tartrate 2 MG CAP.SA PO (09:53)
[2017-05-15] MEDS: Famotidine 20 MG Tablet PO (09:53)
[2017-05-15] MEDS: clonazePAM 0.5 MG Tablet PO (13:27)
[2017-05-15] MEDS: 0.9% NaCl Peripheral Flush Adult/Peds IV (13:28)
--- NOTE | 2017-05-15 13:35 | PN_ITS ---
<Lovely Pollock - Last Filed: 05/15/17 13:35> Patient Problems: Active and Suspected Problems (Last Updated 04/10/17 @ 08:50 by Lovely Buchanan) Influenza A (Acute) Acute on chronic respiratory failure with hypoxia (Acute) Subjective: Patient seen and examined. States shortness of breath is slightly improved. She wore BiPAP overnight and with naps today, tolerated well. Complains of mild hand swelling. Denies fever, chills. Denies other complaints. - Physical Exam General: Alert, Oriented x3, Cooperative, No apparent distress HEENT: Atraumatic, PERRLA, EOMI, Normocephalic Oral: Dry Mucosa Neck: Supple, No JVD, Negative Carotid Bruits Lungs: Clear to auscultation, Diminished Cardiovascular: Regular rate, Regular Rhythm, Normal S1, Normal S2, No murmurs Abdomen: Bowel Sounds Present, Soft, Non Tender, Non-Distended Extremities: No clubbing, No cyanosis, No edema, Capillary Refill Less than 3 Seconds Skin: No rashes, No breakdown Musculoskeletal: No Tenderness to Palpation of Joints or Extremities Neurological: Cranial nerves II-XII grossly intact, Neuro grossly intact Psych/Mental Status: Normal Affect, Appropriate Vital Signs Temp Pulse Resp BP Pulse Ox 97.8 F 109 H 20 H 127/59 H 95 05/15/17 09:56 05/15/17 09:56 05/15/17 09:56 05/15/17 09:56 05/15/17 11:49 Oxygen Flow Rate 4 Oxygen Delivery Method Nasal Cannula Weight: 42.7 kg Body Mass Index (BMI) 17.7 Intake and Output for Last 24 Hours 05/13/17 05/14/17 05/15/17 23:59 23:59 23:59 Intake Total 629 / 629 1433 / 1433 1469 / 1469 Output Total 1250 / 1250 825 / 825 700 / 700 Balance -621 / -621 608 / 608 769 / 769 Microbiology Past 72 Hours 05/13/17 20:08 Respiratory Panel (PCR) - Final Mucosa - Nose Influenza A (Subtype H3) 05/13/17 20:08 Influenza Types A,B Direct FA (DEREK) - Final Mucosa - Nose Influenzae A Laboratory Tests Past 24 Hrs 05/15/17 05/15/17 07:15 07:15 WBC 9.5 RBC 4.54 Hgb 13.6 Hct 40.8 MCV 89.9 MCH 30.0 MCHC 33.3 RDW 13.4 RDW Differential 43.6 Plt Count 124 L MPV 9.5 Sodium 136 Potassium 4.1 Chloride 104 Carbon Dioxide 23.0 Anion Gap 9 BUN 35 H Creatinine 0.82 Estim Creat Clear Calc 38.73 Est GFR (MDRD) Af Amer 87 Est GFR (MDRD) Non-Af 72 BUN/Creatinine Ratio 42.7 H Glucose 150 H Calcium 8.5 Assessment/Plan Active and Suspected Problems (Last Updated 04/10/17 @ 08:50 by Lovely Buchanan) Influenza A (Acute) Acute on chronic respiratory failure with hypoxia (Acute) Patient is a 76-year-old female admitted on 05/13/17 due to persistent shortness of breath. Patient follows with Dr. Lopez for COPD. She was recently admitted May 04, 2017 for exacerbation of COPD. She then returned to the emergency room shortly after on 05/09/2017 due to continued shortness of breath. She was discharged in the emergency room at that time with oral Levaquin and prednisone taper. Again, patient did not note any improvement of symptoms. Patient chronically wears 2 L nasal cannula continuously at home. Her other past medical history includes hypothyroidism, hypertension, hyperlipidemia, interstitial cystitis, obstructive sleep apnea, GERD. 1. Acute COPD exacerbation secondary to acute influenza A-recently treated for pneumonia with oral levaquin. Chest x-ray this admission shows no acute disease. Patient was started on Tamiflu and will complete 5 day course. Continue IV Solu-Medrol. Albuterol and DuoNeb treatments. DC IV fluids. Dr. Lopez, pulmonary consulted. Patient had leukocytosis on admission which has since resolved. Continue supplemental oxygen to maintain O2 at or above 90%. Blood cultures pending. BIPAP HS and with naps. 2. Acute hypoxia on chronic hypoxic respiratory failure secondary to #1-wears 2 L nasal cannula at baseline. Oxygen 95% on 4 L nasal cannula. Titrate oxygen to maintain O2 at or above 90%. BiPAP at bedtime and as needed. 3. Acute kidney injury-suspect secondary to poor oral intake. Resolved with IV fluids. Monitor BMP. 4. Severe protein calorie malnutrition-BMI 17.9. Albumin 0.8. Consult nutrition. 5. Obstructive sleep apnea-continue home BiPAP at bedtime. 6. Hyperlipidemia-continue statin. 7. Hypertension-stable, continue home regimen including carvedilol, amlodipine. Triamterene/HCTZ restarted. 8. Hypothyroidism-not on home Synthroid. TSH 5.33. 9. General physical deconditioning-PT/OT. Nutrition consult as noted above. 10. Anxiety-continue home Klonopin regimen. 11. GERD-continue Prevacid. 12. Overactive bladder-continue oxybutynin, elmiron. 13. Pulmonary hypertension-patient was prescribed Lasix in December by Dr. Lopez for pulmonary hypertension. Patient states this improved her symptoms greatly however Lasix was discontinued due to poor kidney function. BIPAP HS. Patient may benefit from intermittent low-dose Lasix regimen. Patient's previous echocardiogram in 2014 showed an EF of 65% and mild pulmonary hypertension, RVSP 42. Systolic function was noted to be normal. DVT prophylaxis-heparin subcu. This patient was seen by MATTHEW Estrada under the supervision of Dr. Ohara. <Lesly Ohara E - Last Filed: 05/15/17 13:57> - Physical Exam Vital Signs Temp Pulse Resp BP Pulse Ox 97.8 F 109 H 20 H 127/59 H 95 05/15/17 09:56 05/15/17 09:56 05/15/17 09:56 05/15/17 09:56 05/15/17 11:49 Oxygen Flow Rate 4 Oxygen Delivery Method Nasal Cannula Weight: 94 lb 2.198 oz Body Mass Index (BMI) 17.7 Intake and Output for Last 24 Hours 05/13/17 05/14/17 05/15/17 23:59 23:59 23:59 Intake Total 629 / 629 1433 / 1433 1469 / 1469 Output Total 1250 / 1250 825 / 825 700 / 700 Balance -621 / -621 608 / 608 769 / 769 Microbiology Past 72 Hours 05/13/17 20:08 Respiratory Panel (PCR) - Final Mucosa - Nose Influenza A (Subtype H3) 05/13/17 20:08 Influenza Types A,B Direct FA (DEREK) - Final Mucosa - Nose Influenzae A Laboratory Tests Past 24 Hrs 01/09/18 01/09/18 07:15 07:15 WBC 9.5 RBC 4.54 Hgb 13.6 Hct 40.8 MCV 89.9 MCH 30.0 MCHC 33.3 RDW 13.4 RDW Differential 43.6 Plt Count 124 L MPV 9.5 Sodium 136 Potassium 4.1 Chloride 104 Carbon Dioxide 23.0 Anion Gap 9 BUN 35 H Creatinine 0.82 Estim Creat Clear Calc 38.73 Est GFR (MDRD) Af Amer 87 Est GFR (MDRD) Non-Af 72 BUN/Creatinine Ratio 42.7 H Glucose 150 H Calcium 8.5 Assessment/Plan Hospitalist note: I am seeing this patient in conjunction with Lovely Pollock. I independently seen and examined the patient. Progress note above and I agree with above treatment plan. She reported slight improvement of her symptoms. She still requiring BiPAP overnight. Denies fever chills. Other vital signs are stable. - Physical Exam General: Alert, Oriented x3, Cooperative, mildly short of breath. HEENT: Atraumatic, PERRLA, EOMI. Neck: Supple, No JVD, Negative Carotid Bruits, Trachea Midline, Thyroid Normal. Lungs: Decreased breath sounds bilaterally, scattered rhonchi, no wheeze, No rales. Cardiovascular: Regular rate, Regular Rhythm, Normal S1, Normal S2, PMI Normal. Abdomen: Bowel Sounds Present, Soft, Non Tender, Non-Distended, No Hepato- splenomegaly. Extremities: No clubbing, No cyanosis, No edema Skin: No rashes, No breakdown Neurological: Neuro grossly intact. Assessment and plan: #1 acute COPD exacerbation: She is on IV steroids, bronchodilators and Tamiflu for influenza A which is likely the triggering factor. Plan to continue same treatment, wean off oxygen and BiPAP as appropriate. #2 acute on chronic hypoxic respiratory failure: Secondary to above. At home, she has been on 2 L. At this time, she is up to 4 L, plan as above. #3 influenza A: Continue Tamiflu. #4 acute kidney injury: Secondary to dehydration, poor oral intake. She was on IV fluids, gentle hydration, today's creatinine is 0.82, kidney function improved. #5 other chronic medical problems: Hyperlipidemia, hypertension, hypothyroidism , GERD, obstructive sleep apnea, continue current medications. This note was generated with [employer] software. It may contain incorrect words, spelling, and punctuation that were not noted in checking the note before signing. Code Visit Inpatient E&M: 97960 Subs Hosp L2
--- NOTE | 2017-05-15 14:31 | CASEMGMT ---
ALEX received a voice mail from Joaquina at [facility] and they can accept patient. She asked ALEX to call back to tell her when patient will be ready for d/c and if they were her first choice. ALEX called back and left a message for Joaquina letting her know that they are patient's first choice and she would likely be ready . Await pre-cert for [facility]. Shalonda PALOMINO MSW
[2017-05-15] MEDS: Triamterene 75MG/Hctz 50MG Tablet 1 TABLET PO (15:35)
[2017-05-15] MEDS: amLODIPine 5 MG Tablet PO (22:23)
--- NOTE | 2017-05-15 22:31 | NURSING ---
Patient's states patient has been very lethargic since receiving Clonipin today. Pt. is alert and arousable, alert to person only , but very sleepy. Pt. was able to take small pills tonight with sips of water, but did not want her to take large pills due to risk of choking. Larger, non cardiac medications held for this reason. Will continue to monitor.
[2017-05-16] VITALS (22 sets, daily range): BP systolic 128–185; BP diastolic 64–88; PULSE 86–129; RESP 12–40; TEMP 36.3–36.8; O2SAT 95–99
[2017-05-16] MEDS: Heparin Injection 5,000 UNITS/ML Syringe 5000 UNITS SC ×3 (06:24→22:57)
--- NOTE | 2017-05-16 08:15 | PN_ITS ---
Patient Problems: Active and Suspected Problems (Last Updated 04/10/17 @ 08:50 by Lovely Buchanan) Influenza A (Acute) Acute on chronic respiratory failure with hypoxia (Acute) Subjective: Patient was seen and examined. No acute events overnight, however she reports she was restless. She tolerated BiPAP overnight. She has been weaned to 2-3 L per nasal cannula, which is her baseline oxygen requirement. Patient remains hemodynamically stable, afebrile. She was placed back on Maxide yesterday afternoon. Still feels very weak and short of breath. Not feeling like eating this morning. at the bedside. - Physical Exam General: Alert, Oriented x3, Cooperative, - - tachypneic HEENT: Atraumatic, Normocephalic, - - verma face Oral: Moist Mucosa, No Gingival or Mucosal Lesions/ Ulcerations Neck: Supple, No Nodes, Trachea Midline Lungs: Tachypneic, Using Accessory Muscles, - - Diffusely diminished throughout , minimal anterior LUPILLO wheeze, otherwise clear Cardiovascular: Regular Rhythm, Normal S1, Normal S2, No murmurs, No rub noted, No Gallop, Tachycardic Abdomen: Bowel Sounds Present, Soft, Non Tender, Non-Distended, Passing Flatus, - - no BM since 05/12/17 Extremities: No cyanosis, Edema - unchanged--UE still puffy, no LE edema Skin: No rashes, - - UE ecchymotic, thin/frail skin Musculoskeletal: No Tenderness to Palpation of Joints or Extremities Lymphatic: No Cervical, Supraclavicular, or Inguinal Adenopathy Neurological: Cranial nerves II-XII grossly intact, Neuro grossly intact, - - decreased strength but uniform Psych/Mental Status: Alert and oriented to time, place, person, mood and affect Vital Signs Temp Pulse Resp BP Pulse Ox 97.6 F L 101 H 15 128/67 H 97 05/16/17 04:00 05/16/17 07:07 05/16/17 05:28 05/16/17 04:00 05/16/17 05:28 Oxygen Flow Rate 3 Oxygen Delivery Method Bi-pap Weight: 94 lb 2.198 oz Body Mass Index (BMI) 17.7 Intake and Output for Last 24 Hours 05/14/17 05/15/17 05/16/17 23:59 23:59 23:59 Intake Total 1433 / 1433 1739 / 1739 0 / 0 Output Total 825 / 825 1450 / 1450 250 / 250 Balance 608 / 608 289 / 289 -250 / -250 Microbiology Past 72 Hours 05/13/17 20:08 Respiratory Panel (PCR) - Final Mucosa - Nose Influenza A (Subtype H3) 05/13/17 20:08 Influenza Types A,B Direct FA (DEREK) - Final Mucosa - Nose Influenzae A Assessment/Plan Active and Suspected Problems (Last Updated 04/10/17 @ 08:50 by Lovely Buchanan) Influenza A (Acute) Acute on chronic respiratory failure with hypoxia (Acute) RECOMMENDATIONS 1. Wean oxygen supplementation to keep saturations 88-92%. 2. Encourage incentive spirometer and Acapella 3. Increase activity as tolerated, continue PT 4. Continue inhalers as ordered, pt does not tolerate aerosols 5. Likely okay to transition to oral steroids today 6. Droplet precautions, continue Tamiflu 7. Obtain sputum if cough becomes productive 8. BiPAP at night, use PRN rescue as well 9. Walking oximetry prior to discharge 10. Close follow-up in the pulmonary clinic after discharge, within 2 weeks with [employer] IMPRESSIONS 1. Acute hypoxic respiratory failure secondary to COPD exacerbation secondary to influenza A Patient was recently treated for COPD exacerbation/pneumonia as evidenced on CTA of the chest last week when she presented to the ER. She has been on Levaquin and a prednisone taper as an outpatient. No current leukocytosis. Her blood cultures are pending, but infectious etiology unlikely. She was positive for influenza A -subtype H3. Patient was advised she will likely have a protracted course given her baseline lung function and comorbidities, she and her both acknowledged understanding. Diuretic reintroduced 05/15. Patient has been weaned to her baseline requirement of 2-3 L, however she is still experiencing frequent dyspnea at rest, tachypnea, and conversational dyspnea. Encourage PRN use of BiPAP to assist with work of breathing, as patient notes significant improvement with use. She is very diminished with faint L anterior wheeze, but otherwise clear. Plan: Continue diuretic. Monitor renal function, stable for now. Continue Ventolin scheduled and as needed, Symbicort, IV steroids--likely okay to transition to oral today. Increase activity as tolerated and encourage incentive spirometer and Acapella. Obtain sputum specimen if cough becomes productive. Patient currently maintaining saturations on her baseline oxygen requirement of 2-3 L. Continue to wean oxygen as tolerated to keep saturations 88-92%. 2. Obstructive sleep apnea Patient tolerating BiPAP therapy better than she typically does, she is using at night and PRN rescue throughout the day. Encourage PRN use of BiPAP, as patient has significant subjective improvement with use. 3. Pulmonary hypertension Her last echocardiogram in March 2017 showed improvement in RVSP. She seems to be responding well to diuretic therapy and has been compliant with her oxygen and BiPAP at home. 4. Hyponatremia Resolved. IVF discontinued as patient is somewhat edematous. Follow BMP. 5. Hyperlipidemia/hypertension/hypothyroidism/deconditioning/chronic cystitis/ advanced age Complicates care, management, recovery, and prognosis. Okay to continue her home medications as indicated. Management per hospitalist. Patient does take Elmiron, methenamine mandelate, and oxybutynin chronically for her cystitis. This note was generated with [employer] software dictation software. It may contain incorrect words, spelling, and punctuation that were not noted in checking the note before signing.
[2017-05-16] MEDS: Triamterene 75MG/Hctz 50MG Tablet 1 TABLET PO (10:02)
[2017-05-16] MEDS: Carvedilol 12.5 MG Tablet PO ×2 (10:08→22:57)
[2017-05-16] MEDS: Tolterodine Tartrate 2 MG CAP.SA PO (10:08)
[2017-05-16] MEDS: Famotidine 20 MG Tablet PO (10:08)
[2017-05-16] MEDS: Oseltamivir Phosphate 30 MG Capsule PO (10:12)
--- NOTE | 2017-05-16 11:57 | PN_ITS ---
<Lovely Pollock - Last Filed: 05/16/17 12:11> Patient Problems: Active and Suspected Problems (Last Updated 04/10/17 @ 08:50 by Lovely Buchanan) Influenza A (Acute) Acute on chronic respiratory failure with hypoxia (Acute) Subjective: Patient seen and examined. States she continues to have shortness of breath and fatigue. She does not feel her breathing is improving. Denies fever, chills. She did wear BiPAP overnight and tolerated without difficulty. She denies other complaints. - Physical Exam General: Alert, Oriented x3, Cooperative, - - Drowsy, appears fatigued HEENT: Atraumatic, PERRLA, EOMI, Normocephalic Oral: Dry Mucosa Neck: Supple, No JVD, Negative Carotid Bruits Lungs: Diminished, Wheezes - Mild, sporatic Cardiovascular: Regular Rhythm, Normal S1, Normal S2, No murmurs, Tachycardic Abdomen: Bowel Sounds Present, Soft, Non Tender, Non-Distended Extremities: No clubbing, No cyanosis, No edema, Capillary Refill Less than 3 Seconds Skin: No rashes, No breakdown Musculoskeletal: No Tenderness to Palpation of Joints or Extremities Neurological: Cranial nerves II-XII grossly intact, Neuro grossly intact Psych/Mental Status: Normal Affect, Appropriate Vital Signs Temp Pulse Resp BP Pulse Ox 98.2 F 129 H 24 H 139/64 H 97 05/16/17 10:34 05/16/17 11:11 05/16/17 10:34 05/16/17 10:34 05/16/17 10:34 Oxygen Flow Rate 3 Oxygen Delivery Method Bi-pap Weight: 42.7 kg Body Mass Index (BMI) 17.7 Intake and Output for Last 24 Hours 05/14/17 05/15/17 05/16/17 23:59 23:59 23:59 Intake Total 1433 / 1433 1739 / 1739 0 / 0 Output Total 825 / 825 1450 / 1450 250 / 250 Balance 608 / 608 289 / 289 -250 / -250 Microbiology Past 72 Hours 05/13/17 20:08 Respiratory Panel (PCR) - Final Mucosa - Nose Influenza A (Subtype H3) 05/13/17 20:08 Influenza Types A,B Direct FA (DEREK) - Final Mucosa - Nose Influenzae A Assessment/Plan Active and Suspected Problems (Last Updated 04/10/17 @ 08:50 by Lovely Buchanan) Influenza A (Acute) Acute on chronic respiratory failure with hypoxia (Acute) Patient is a 76-year-old female admitted on 05/13/17 due to persistent shortness of breath. Patient follows with Dr. Lopez for COPD. She was recently admitted May 04, 2017 for exacerbation of COPD. She then returned to the emergency room shortly after on 05/09/2017 due to continued shortness of breath. She was discharged in the emergency room at that time with oral Levaquin and prednisone taper. Again, patient did not note any improvement of symptoms. Patient chronically wears 2 L nasal cannula continuously at home. Her other past medical history includes hypothyroidism, hypertension, hyperlipidemia, interstitial cystitis, obstructive sleep apnea, GERD. 1. Acute COPD exacerbation secondary to acute influenza A-recently treated for pneumonia with oral levaquin. Chest x-ray this admission shows no acute disease. Patient was started on Tamiflu and will complete 5 day course. Continue IV Solu-Medrol. Albuterol and DuoNeb treatments. Dr. Lopez, pulmonary consulted. Patient had leukocytosis on admission which has since resolved. Continue supplemental oxygen to maintain O2 at or above 90%. Blood cultures pending. BIPAP HS and with naps. Repeat CXR given minimal improvement in dyspnea and concurrent sinus tachycardia this a.m. 2. Acute hypoxia on chronic hypoxic respiratory failure secondary to #1-wears 2 L nasal cannula at baseline. Oxygen 96% on 3 L nasal cannula. Titrate oxygen to maintain O2 at or above 90%. BiPAP at bedtime and as needed. 3. Acute kidney injury-suspect secondary to poor oral intake. Resolved with IV fluids. Monitor BMP. 4. Severe protein calorie malnutrition-BMI 17.9. Albumin 0.8. Consult nutrition. 5. Obstructive sleep apnea-continue home BiPAP at bedtime. 6. Hyperlipidemia-continue statin. 7. Hypertension-stable, continue home regimen including carvedilol, amlodipine. Triamterene/HCTZ restarted. 8. Hypothyroidism-not on home Synthroid. TSH 5.33. 9. General physical deconditioning-PT/OT. Nutrition consult as noted above. 10. Anxiety-continue home Klonopin regimen. 11. GERD-continue Prevacid. 12. Overactive bladder-continue oxybutynin, elmiron. 13. Pulmonary hypertension-patient was prescribed Lasix in December by Dr. Lopez for pulmonary hypertension. Patient states this improved her symptoms greatly however Lasix was discontinued due to poor kidney function. BIPAP HS. Patient may benefit from intermittent low-dose Lasix regimen. Patient's previous echocardiogram in 2014 showed an EF of 65% and mild pulmonary hypertension, RVSP 42. Systolic function was noted to be normal. 14. Tachycardia-sinus tachycardia with elevated HR this morning. Suspect secondary to albuterol aerosols and anxiety related to dyspnea. Continue to monitor. Add low dose metoprolol if not improved. DVT prophylaxis-heparin subcu. This patient was seen by MATTHEW Estrada under the supervision of Dr. Ohara. <Lesly Ohara E - Last Filed: 05/16/17 14:19> - Physical Exam Vital Signs Temp Pulse Resp BP Pulse Ox 97.8 F 110 H 36 H 163/76 H 96 05/16/17 12:37 05/16/17 12:37 05/16/17 12:37 05/16/17 12:37 05/16/17 12:37 Oxygen Flow Rate 3 Oxygen Delivery Method Nasal Cannula Weight: 94 lb 2.198 oz Body Mass Index (BMI) 17.7 Intake and Output for Last 24 Hours 05/14/17 05/15/17 05/16/17 23:59 23:59 23:59 Intake Total 1433 / 1433 1739 / 1739 0 / 0 Output Total 825 / 825 1450 / 1450 550 / 550 Balance 608 / 608 289 / 289 -550 / -550 Microbiology Past 72 Hours 05/13/17 20:08 Respiratory Panel (PCR) - Final Mucosa - Nose Influenza A (Subtype H3) 05/13/17 20:08 Influenza Types A,B Direct FA (DEREK) - Final Mucosa - Nose Influenzae A Laboratory Tests Past 24 Hrs 05/16/17 12:18 Specimen Type ART Sample Site R Radial pH 7.37 Bicarbonate Actual 27.5 H POC Total CO2 29 Base Excess 2 O2 Saturation 94 L ABG pCO2 48.1 H ABG pO2 74 L Efra Test POS O2 Delivery Device Nasal Can Liter Flow 3.0 Blood Gas Notified Whom HOSP Blood Gas Notified Time 1210 Assessment/Plan Hospitalist note: I am seeing this patient in conjunction with Lovely Pollock. I independently seen and examined the patient. Progress note above and I agree with above treatment plan. Patient remained the same, reported no improvement compared to yesterday. She has been on BiPAP this morning. I took her off BiPAP at this time and she actually felt better. Afebrile, tachycardic, blood pressure slightly elevated and she is hypoxic. - Physical Exam General: Alert, Oriented x3, Cooperative, mildly short of breath. HEENT: Atraumatic, PERRLA, EOMI. Neck: Supple, No JVD, Negative Carotid Bruits, Trachea Midline, Thyroid Normal. Lungs: Decreased breath sounds bilaterally, scattered rhonchi, no wheeze, No rales. Cardiovascular: Regular rate, Regular Rhythm, Normal S1, Normal S2, PMI Normal. Abdomen: Bowel Sounds Present, Soft, Non Tender, Non-Distended, No Hepato- splenomegaly. Extremities: No clubbing, No cyanosis, No edema Skin: No rashes, No breakdown Neurological: Neuro grossly intact. Assessment and plan: #1 acute COPD exacerbation: She is on IV steroids, bronchodilators and Tamiflu for influenza A which is likely the triggering factor. No improvement compared to yesterday. Plan: Stat ABG, wean down to nasal cannula, close monitoring. #2 acute on chronic hypoxic respiratory failure: Secondary to above. At home, she has been on 2 L. plan as above. #3 influenza A: Continue Tamiflu. #4 acute kidney injury: Secondary to dehydration, poor oral intake. She was on IV fluids, gentle hydration, yesterday creatinine is 0.82, kidney function improved. #5 other chronic medical problems: Hyperlipidemia, hypertension, hypothyroidism , GERD, obstructive sleep apnea, continue current medications. This note was generated with [employer] dictation software. It may contain incorrect words, spelling, and punctuation that were not noted in checking the note before signing. Code Visit Inpatient E&M: 37121 Subs Hosp L2
[2017-05-16] MEDS: clonazePAM 0.5 MG Tablet PO (12:05)
--- NOTE | 2017-05-16 12:06 | RAD_ITS ---
STUDY: X-RAY CHEST REASON FOR EXAM: Female, 76 years old. Shortness of breath and COPD. TECHNIQUE: Single AP portable view of the chest. COMPARISON: Comparison is made with prior study dated May 14, 2017. FINDINGS: EKG electrodes are seen. Hyperinflation. No acute abnormality is seen. There is no demonstrated pleural abnormality. Normal size heart. Normal mediastinum and gracy. Normal visualized pulmonary arteries. Normal visualized aortic arch and descending thoracic aorta. Normal visualized thoracic spine. There is evidence of right calcific tendinitis of the shoulder joint. There is no demonstrated abnormality of the visualized soft tissue structures of the upper abdomen. RAD/Chest 1 View (Portable) IMPRESSION: Hyperinflation. No acute abnormality is seen. Calcific tendinitis of the right shoulder. Electronically Signed: Gamaliel Tejada MD at 15:17 EST Tel [phone], Service support ,
[2017-05-16 12:21] LABS: Allen Test POS; Base Excess 2 mmol/L (-2 to +2); Bicarbonate 27.5 mmol/L (22-26); Blood Gas Specimen Type ART; O2 Delivery Device Nasal Can; PO2 74 mmHG (75-100); SITE R Radial; SO2 94 % (95-99); Time Given 1210; Total Carbon Dioxide 29 mmol/L; pCO2 48.1 mmHg (35-45); pH 7.37 (7.35-7.45)
[2017-05-16] MEDS: Furosemide 40 MG/4 ML Vial IV (12:39)
--- NOTE | 2017-05-16 18:56 | NURSING ---
REVIEWED AND AGREED [facility] CHARTING.
--- NOTE | 2017-05-16 21:32 | CPS ---
Patient unable to do manuevers at this time.
--- NOTE | 2017-05-16 21:32 | CPS ---
Patient unable to do IS at this time.
[2017-05-16] MEDS: guaiFENesin 1,200 MG Tablet 1200 MG PO (22:57)
[2017-05-16] MEDS: Atorvastatin Calcium 20 MG Tablet PO (22:57)
[2017-05-16] MEDS: Multivitamins,Therapeutic Tablet 1 TABLET PO (22:57)
[2017-05-16] MEDS: amLODIPine 5 MG Tablet PO (22:57)
[2017-05-16] MEDS: 0.9% NaCl Peripheral Flush Adult/Peds IV (22:57)
[2017-05-16] MEDS: Calcium (Elemental) 500 MG Tablet PO (22:57)
[2017-05-17] VITALS (16 sets, daily range): BP systolic 123–177; BP diastolic 81–93; PULSE 96–115; RESP 12–33; TEMP 36.2–37; O2SAT 95–97
[2017-05-17 07:01] LABS: Hematocrit 47.4 % (37-47); Hemoglobin 16.4 g/dl (12.0-15.0); Mean Corp Hgb Conc 34.6 g/gl (32-36); Mean Corpuscular Hgb 30.8 pg (27.0-32.0); Mean Corpuscular Volume 88.9 fL (81-99); Mean Platelet Vol. 10.6 fl (6.2-12.0); Platelet Count 200 K/mm3 (150-450); RBC Distribution Width CV 13.6 % (11.6-14.6); RBC Distribution Width SD 44.1 fl (35.1-43.9); Red Blood Count 5.33 M/mm3 (4.2-5.4); White Blood Count 21.6 K/mm3 (4.4-11.0)
[2017-05-17 07:14] LABS: Scan Indicated on CBC? Y/N NO
--- NOTE | 2017-05-17 07:26 | PN_ITS ---
<Lovely Pollock - Last Filed: 05/17/17 07:27> Patient Problems: Active and Suspected Problems (Last Updated 04/10/17 @ 08:50 by Lovely Buchanan) Influenza A (Acute) Acute on chronic respiratory failure with hypoxia (Acute) Subjective: Patient seen and examined. Resting in bed in no acute distress, BiPAP in place. Patient tolerated BiPAP overnight however she complains of restlessness and poor sleep. Has been at bedside states patient was up frequently throughout the night tugging at mask. He states she attempted to use her BiPAP from home but the pressure seemed to be too much for her. He feels this needs further adjustment. Nursing reported small amount of blood in stool overnight. Stool for occult blood pending. Hemoglobin with no change. Patient will go to [facility] when ready for discharge. - Physical Exam General: No apparent distress, - - Drowsy Oral: Dry Mucosa Neck: Supple, No JVD, Negative Carotid Bruits Lungs: Clear to auscultation, Diminished Cardiovascular: Regular Rhythm, Normal S1, Normal S2, No murmurs, Tachycardic Abdomen: Bowel Sounds Present, Soft, Non Tender, Non-Distended Extremities: No clubbing, No cyanosis, No edema, Capillary Refill Less than 3 Seconds Skin: No rashes, No breakdown Musculoskeletal: No Tenderness to Palpation of Joints or Extremities Neurological: Cranial nerves II-XII grossly intact, Neuro grossly intact Psych/Mental Status: Normal Affect, Appropriate Vital Signs Temp Pulse Resp BP Pulse Ox 97.2 F L 104 H 20 H 152/90 H 96 05/17/17 03:29 05/17/17 03:34 05/17/17 03:29 05/17/17 03:29 05/17/17 03:33 Oxygen Flow Rate 3 Oxygen Delivery Method Bi-pap Weight: 42.7 kg Body Mass Index (BMI) 17.7 Intake and Output for Last 24 Hours 05/15/17 05/16/17 05/17/17 23:59 23:59 23:59 Intake Total 1739 / 1739 330 / 330 120 / 120 Output Total 1450 / 1450 2225 / 2225 200 / 200 Balance 289 / 289 -1895 / -1895 -80 / -80 Microbiology Past 72 Hours 05/13/17 20:08 Respiratory Panel (PCR) - Final Mucosa - Nose Influenza A (Subtype H3) Laboratory Tests Past 24 Hrs 05/16/17 05/17/17 12:18 05:05 WBC Pending RBC Pending Hgb Pending Hct Pending MCV Pending MCH Pending MCHC Pending RDW Pending RDW Differential Pending Plt Count Pending Specimen Type ART Sample Site R Radial pH 7.37 Bicarbonate Actual 27.5 H POC Total CO2 29 Base Excess 2 O2 Saturation 94 L ABG pCO2 48.1 H ABG pO2 74 L Efra Test POS O2 Delivery Device Nasal Can Liter Flow 3.0 Blood Gas Notified Whom HOSP Blood Gas Notified Time 1210 Assessment/Plan Active and Suspected Problems (Last Updated 04/10/17 @ 08:50 by Lovely Buchanan) Influenza A (Acute) Acute on chronic respiratory failure with hypoxia (Acute) Patient is a 76-year-old female admitted on 05/13/17 due to persistent shortness of breath. Patient follows with Dr. Lopez for COPD. She was recently admitted May 04, 2017 for exacerbation of COPD. She then returned to the emergency room shortly after on 05/09/2017 due to continued shortness of breath. She was discharged in the emergency room at that time with oral Levaquin and prednisone taper. Again, patient did not note any improvement of symptoms. Patient chronically wears 2 L nasal cannula continuously at home. Her other past medical history includes hypothyroidism, hypertension, hyperlipidemia, interstitial cystitis, obstructive sleep apnea, GERD. 1. Acute COPD exacerbation secondary to acute influenza A-recently treated for pneumonia with oral levaquin. Chest x-ray this admission shows no acute disease. Patient was started on Tamiflu and will complete 10 day course, 30mg daily given renal function on admission. Patient can transition to prednisone taper today. Albuterol and DuoNeb treatments. Dr. Lopez, pulmonary consulted. Continue supplemental oxygen to maintain O2 at or above 90%. Blood cultures showing no growth in 48 hours. BIPAP HS and with naps. Repeat chest x-ray yesterday showed hyperinflation, no acute abnormality. Patient was given IV Lasix ?1 and had improvement with symptoms. 2. Acute hypoxia on chronic hypoxic respiratory failure secondary to #1-wears 2 L nasal cannula at baseline. Titrate oxygen to maintain O2 at or above 90%. BiPAP at bedtime and as needed. 3. Acute kidney injury-suspect secondary to poor oral intake. Resolved with IV fluids. Monitor BMP. 4. Severe protein calorie malnutrition-BMI 17.9. Albumin 0.8. Consult nutrition. 5. Obstructive sleep apnea-continue home BiPAP at bedtime. 6. Hyperlipidemia-continue statin. 7. Hypertension-stable, continue home regimen including carvedilol, amlodipine. Triamterene/HCTZ restarted. 8. Hypothyroidism-not on home Synthroid. TSH 5.33. 9. General physical deconditioning-PT/OT. Nutrition consult as noted above. 10. Anxiety-continue home Klonopin regimen. 11. GERD-continue Prevacid. 12. Overactive bladder-continue oxybutynin, elmiron. 13. Pulmonary hypertension-patient was prescribed Lasix in December by Dr. Lopez for pulmonary hypertension. Patient states this improved her symptoms greatly however Lasix was discontinued due to poor kidney function. BIPAP HS. Patient may benefit from intermittent low-dose Lasix regimen. Patient's previous echocardiogram in 2014 showed an EF of 65% and mild pulmonary hypertension, RVSP 42. Systolic function was noted to be normal. 14. Tachycardia-patient continues to have mild tachycardia. Add low dose beta yoni. Continue to monitor. 15. Reported small amount of blood in stool overnight- stool for occult blood pending. No drop in hgb. DVT prophylaxis-heparin subcu. Discharge planning-plan is for patient to go to [facility] when stable for discharge. This patient was seen by MATTHEW Estrada under the supervision of Dr. Ohara. <Lesly Ohara E - Last Filed: 05/17/17 12:18> - Physical Exam Vital Signs Temp Pulse Resp BP Pulse Ox 97.5 F L 115 H 20 H 177/93 H 96 05/17/17 09:55 05/17/17 09:55 05/17/17 09:55 05/17/17 09:55 05/17/17 09:55 Oxygen Flow Rate 3 Oxygen Delivery Method Nasal Cannula Weight: 94 lb 2.198 oz Body Mass Index (BMI) 17.7 Intake and Output for Last 24 Hours 05/15/17 05/16/17 05/17/17 23:59 23:59 23:59 Intake Total 1739 / 1739 330 / 330 120 / 120 Output Total 1450 / 1450 2225 / 2225 200 / 200 Balance 289 / 289 -1895 / -1895 -80 / -80 Microbiology Past 72 Hours 05/17/17 04:45 Stool Occult Blood (DEREK) - Final Stool 05/13/17 20:08 Respiratory Panel (PCR) - Final Mucosa - Nose Influenza A (Subtype H3) Laboratory Tests Past 24 Hrs 05/16/17 05/17/17 12:18 05:05 WBC 21.6 H RBC 5.33 Hgb 16.4 H Hct 47.4 H MCV 88.9 MCH 30.8 MCHC 34.6 RDW 13.6 RDW Differential 44.1 H Plt Count 200 MPV 10.6 Specimen Type ART Sample Site R Radial pH 7.37 Bicarbonate Actual 27.5 H POC Total CO2 29 Base Excess 2 O2 Saturation 94 L ABG pCO2 48.1 H ABG pO2 74 L Efra Test POS O2 Delivery Device Nasal Can Liter Flow 3.0 Blood Gas Notified Whom [facility] Blood Gas Notified Time 1210 Assessment/Plan I am seeing this patient in conjunction with Lovely Pollock. I independently seen and examined the patient. Progress note above and I agree with above treatment plan. Patient seen and examined. Today, she looked less short of breath, reported mild improvement of her shortness of breath. She complained upset stomach and nausea. Denied chest pain. Remained afebrile, slightly tachycardic, pulse ox is 96% on 2 L. She has been on BiPAP overnight. - Physical Exam General: Alert, Oriented x3, Cooperative, short of breath. HEENT: Atraumatic, PERRLA, EOMI. Neck: Supple, No JVD, Negative Carotid Bruits, Trachea Midline, Thyroid Normal. Lungs: Decreased breath sounds bilaterally, scattered rhonchi, no wheeze, No rales, short of breath, using accessory muscles of respiration. Cardiovascular: Regular rate, Regular Rhythm, tachycardia, normal S1, Normal S2 , PMI Normal. Abdomen: Bowel Sounds Present, Soft, Non Tender, Non-Distended, No Hepato- splenomegaly. Extremities: No clubbing, No cyanosis, No edema Skin: No rashes, No breakdown Neurological: Neuro grossly intact. Assessment and plan: #1 acute COPD exacerbation: She is on oral prednisone, bronchodilators and Tamiflu for influenza A which is likely the triggering factor. Reported minimal improvement improvement compared to yesterday. ABG from yesterday reviewed, plan to continue same treatment. #2 acute on chronic hypoxic respiratory failure: Secondary to above. At home, she has been on 2 L. plan as above. #3 influenza A: Continue Tamiflu. #4 acute kidney injury: Secondary to dehydration, poor oral intake. She was on IV fluids, gentle hydration, most recent creatinine is 0.82, kidney function improved. #5 other chronic medical problems: Hyperlipidemia, hypertension, hypothyroidism , GERD, obstructive sleep apnea, continue current medications. This note was generated with [employer] dictation software. It may contain incorrect words, spelling, and punctuation that were not noted in checking the note before signing. Code Visit Inpatient E&M: 02080 Subs Hosp L2
--- NOTE | 2017-05-17 08:38 | PCM.PROGNOTE ---
Patient Problems: Active and Suspected Problems (Last Updated 04/10/17 @ 08:50 by Lovely Buchanan) Influenza A (Acute) Acute on chronic respiratory failure with hypoxia (Acute) Subjective: Patient was seen and examined. She is alert but not wanting to converse today. Her is answering questions for her. She does nod her head when asked if she feels more short of breath, she is mouth breathing and appears labored. Patient is persistently tachycardic this morning, up to 115. She does not want to go back on the BiPAP. She is refusing a Ventimask as well. She is not tolerating physical therapy, refusing most of the time. She had a bowel movement 05/16/17. She has not ate anything since yesterday morning, states she is not hungry. - Physical Exam General: Alert, Oriented x3, - - Patient does not wish to speak at this time. HEENT: Atraumatic, Normocephalic Oral: Moist Mucosa, No Gingival or Mucosal Lesions/ Ulcerations Neck: Supple, No Nodes, Trachea Midline Lungs: No rhonchi, No wheeze, No rales, Diminished, Short of Breath, Tachypneic Cardiovascular: Regular Rhythm, Normal S1, Normal S2, Tachycardic Abdomen: Bowel Sounds Present, Soft, Non Tender, Non-Distended Extremities: No cyanosis, Edema - Improved in upper extremities, no LE edema Skin: - - Unchanged Musculoskeletal: No Tenderness to Palpation of Joints or Extremities Lymphatic: No Cervical, Supraclavicular, or Inguinal Adenopathy Neurological: Neuro grossly intact Psych/Mental Status: Flat Affect, Restless Vital Signs Temp Pulse Resp BP Pulse Ox 97.2 F L 111 H 22 H 152/90 H 95 05/17/17 03:29 05/17/17 07:27 05/17/17 07:00 05/17/17 03:29 05/17/17 07:00 Oxygen Flow Rate 3 Oxygen Delivery Method Bi-pap Weight: 94 lb 2.198 oz Body Mass Index (BMI) 17.7 Intake and Output for Last 24 Hours 05/15/17 05/16/17 05/17/17 23:59 23:59 23:59 Intake Total 1739 / 1739 330 / 330 120 / 120 Output Total 1450 / 1450 2225 / 2225 200 / 200 Balance 289 / 289 -1895 / -1895 -80 / -80 Microbiology Past 72 Hours 05/17/17 04:45 Stool Occult Blood (DEREK) - Final Stool 05/13/17 20:08 Respiratory Panel (PCR) - Final Mucosa - Nose Influenza A (Subtype H3) Laboratory Tests Past 24 Hrs 05/16/17 05/17/17 12:18 05:05 WBC 21.6 H RBC 5.33 Hgb 16.4 H Hct 47.4 H MCV 88.9 MCH 30.8 MCHC 34.6 RDW 13.6 RDW Differential 44.1 H Plt Count 200 MPV 10.6 Specimen Type ART Sample Site R Radial pH 7.37 Bicarbonate Actual 27.5 H POC Total CO2 29 Base Excess 2 O2 Saturation 94 L ABG pCO2 48.1 H ABG pO2 74 L Efra Test POS O2 Delivery Device Nasal Can Liter Flow 3.0 Blood Gas Notified Whom HOSP Blood Gas Notified Time 1210 Assessment/Plan Active and Suspected Problems (Last Updated 04/10/17 @ 08:50 by Lovely Buchanan) Influenza A (Acute) Acute on chronic respiratory failure with hypoxia (Acute) RECOMMENDATIONS 1. Wean oxygen supplementation to keep saturations 88-92%. 2. Encourage incentive spirometer and Acapella 3. Increase activity as tolerated, continue PT 4. Continue inhalers as ordered, pt does not tolerate aerosols 5. Continue oral steroids 6. Droplet precautions, continue Tamiflu x5 days 7. Obtain sputum if cough becomes productive 8. BiPAP at night, use PRN rescue as well (as tolerated) 9. Walking oximetry prior to discharge 10. Close follow-up in the pulmonary clinic after discharge, within 2 weeks with [facility] [facility] 11. Obtain bedside fan, utilize 12. Obtain echocardiogram IMPRESSIONS 1. Acute hypoxic respiratory failure secondary to COPD exacerbation secondary to influenza A Patient was recently treated for COPD exacerbation/pneumonia as evidenced on CTA of the chest last week when she presented to the ER. She had been on Levaquin and a prednisone taper as an outpatient. Blood cultures showed no growth. Hemoccult stool negative. She was positive for influenza A -subtype H3. Patient was advised she will likely have a protracted course given her baseline lung function and comorbidities, she and her both acknowledged understanding. Diuretic reintroduced 05/15. Patient has been weaned to her baseline requirement of 2-3 L, however she is still experiencing frequent dyspnea at rest, tachypnea, and conversational dyspnea. Encourage PRN use of BiPAP to assist with work of breathing, as patient notes significant improvement with use. No leukocytosis on 05/15, 05/17 her white count is 21,600. May be secondary to steroids, has been afebrile. Plan: Continue oral diuretic. Patient had Lasix 40 mg IV ?1 on 05/16. Monitor renal function, stable for now. Continue Ventolin scheduled and as needed, Symbicort, oral steroids. Patient currently maintaining saturations on her baseline oxygen requirement of 2-3 L, but does c/o dyspnea at rest. She feels worse today, feels very weak and does not want to eat. She did not eat anything yesterday after breakfast and did not eat this a.m. Continue to wean oxygen as tolerated to keep saturations 88-92%. Try bedside fan, possibly air hunger. Last echocardiogram in 2014 showed normal LV size and function, estimated EF of 65%, RVSP 42 mmHg, mild pulmonary hypertension. Will repeat to reassess function, possibly worsening leading to progressive dyspnea? 2. Obstructive sleep apnea Patient tolerating BiPAP therapy better than she typically does, she is using at night and PRN rescue throughout the day. Encourage PRN use of BiPAP, as patient has significant subjective improvement with use. 3. Pulmonary hypertension Her last echocardiogram in March 2017 showed improvement in RVSP. Repeat echo today, symptoms are not improving. 4. Hyponatremia Resolved. IVF discontinued as patient is somewhat edematous. Follow BMP. 5. Hyperlipidemia/hypertension/hypothyroidism/deconditioning/chronic cystitis/advanced age Complicates care, management, recovery, and prognosis. Okay to continue her home medications as indicated. Management per hospitalist. Patient does take Elmiron, methenamine mandelate, and oxybutynin chronically for her cystitis. This note was generated with [employer] dictation software. It may contain incorrect words, spelling, and punctuation that were not noted in checking the note before signing.
--- NOTE | 2017-05-17 08:54 | CASEMGMT ---
ALEX faxed bi-pap settings to [facility] and let them know that she will need it at night and PRN rescue. Shalonda PALOMINO [employer]NEY[employer]PENTER
[2017-05-17] MEDS: 0.9% NaCl Peripheral Flush Adult/Peds IV (10:04)
[2017-05-17] MEDS: guaiFENesin 1,200 MG Tablet 1200 MG PO (10:05)
[2017-05-17] MEDS: Ascorbic Acid 500 MG Tablet 1000 MG PO (10:06)
[2017-05-17] MEDS: Tolterodine Tartrate 2 MG CAP.SA PO (10:07)
[2017-05-17] MEDS: Famotidine 20 MG Tablet PO (10:08)
[2017-05-17] MEDS: clonazePAM 0.5 MG Tablet PO (10:19)
[2017-05-17] MEDS: Triamterene 75MG/Hctz 50MG Tablet 1 TABLET PO (10:20)
[2017-05-17] MEDS: Carvedilol 25 MG Tablet PO ×2 (10:20→21:10)
[2017-05-17] MEDS: Oseltamivir Phosphate 30 MG Capsule PO (10:20)
[2017-05-17] MEDS: Pantoprazole Sodium 40 MG Tablet PO (12:56)
[2017-05-17] MEDS: Ondansetron 4 MG/2 ML Vial IV (12:56)
[2017-05-17] MEDS: Heparin Injection 5,000 UNITS/ML Syringe 5000 UNITS SC ×2 (14:59→21:10)
--- NOTE | 2017-05-17 18:38 | NURSING ---
REVIEWED AND AGREED [facility] CHARTING.
[2017-05-17] MEDS: amLODIPine 5 MG Tablet PO (21:10)
[2017-05-18] VITALS (10 sets, daily range): BP systolic 138–149; BP diastolic 76–88; PULSE 98–112; RESP 12–38; TEMP 36.6–36.9; O2SAT 92–97
[2017-05-18] MEDS: Heparin Injection 5,000 UNITS/ML Syringe 5000 UNITS SC (05:21)
[2017-05-18 06:57] LABS: Anion Gap 9 (5-15); BUN 75 mg/dL (7-18); BUN/Creat Ratio 64.1 RATIO (10-20); Calcium,Total 9.4 mg/dL (8.5-10.1); Chloride 98 mmol/L (98-107); Creatinine, Serum 1.17 mg/dL (0.55-1.02); EST Glomerular Filtration Rate 48 mL/min (>60); Est Glom Filt Rate - Afr Amer 58 mL/min (>60); Estimated Creatinine Clearance 27.14 ml/min; Glucose 170 mg/dL (70-110); Potassium 5.7 mmol/L (3.5-5.1); Sodium Level 134 mmol/L (136-145)
[2017-05-18 07:06] LABS: Absolute Lymphocyte Count 1.37 X10^3/ul (0.83-4.51); Absolute Neutrophil Count 18.5 X10^3/uL (2.0-7.7); Basophil# 0.02 X10^3/uL; Basophil% 0.1 % (0-1); Hematocrit 47.1 % (37-47); Lymphocyte # 1.37 X10^3/ul (4.0); Lymphocyte % 6.6 % (19-41); Mean Corpuscular Hgb 30.7 pg (27.0-32.0); Mean Corpuscular Volume 90.4 fL (81-99); Mean Platelet Vol. 10.5 fl (6.2-12.0); Monocyte# 0.65 X10^3/uL; Monocyte% 3.1 % (0-10); Neutrophil # 18.53 X10^3/uL (2.7-7.7); Neutrophil % 89.9 % (47-70); Platelet Count 201 K/mm3 (150-450); RBC Distribution Width CV 13.7 % (11.6-14.6); RBC Distribution Width SD 44.9 fl (35.1-43.9); Red Blood Count 5.21 M/mm3 (4.2-5.4); White Blood Count 20.6 K/mm3 (4.4-11.0)
[2017-05-18 07:14] LABS: Differential Indicated SCAN CRITERIA MET; POSITIVE COUNT NO; POSITIVE DIFFERENTIAL NO; POSITIVE MORPHOLOGY YES
--- NOTE | 2017-05-18 08:24 | PCM.PROGNOTE ---
Patient Problems: Active and Suspected Problems (Last Updated 04/10/17 @ 08:50 by Lovely Buchanan) Influenza A (Acute) Acute on chronic respiratory failure with hypoxia (Acute) Subjective: Patient was seen and examined. She is currently on BiPAP with a FiO2 of 30% and lethargic. Her states she has been like this all last night and all morning. She is trying to raise her arms to pull at the mask but is too weak. Leukocytosis remains at 20,600, patient remains afebrile. Hemoglobin is at 16. She has not had much oral intake in the last 48 hours. Her potassium this morning is 5.7. Renal function is somewhat worse with a BUN of 75 and creatinine 1.17. Kayexalate has been ordered by the hospitalist, but patient is unable to take at this time secondary to lethargy. Nursing staff found a pill in her BiPAP this morning from last night. Personally had a conversation with patient's this morning, he is concerned about her decline. We discussed her disease process/course and the appropriateness of palliative/hospice care, he appears to be interested. However, he once to call his daughter and son to the hospital to discuss this further before making a final decision. He is going to let us know and they can be here to have a meeting so her questions can be answered as well. - Physical Exam General: Lethargic HEENT: Atraumatic Oral: - - BiPAP mask remains on Neck: Supple, No Nodes, Trachea Midline Lungs: - - Very diminished anteriorly Cardiovascular: Normal S1, Normal S2, Tachycardic Abdomen: Bowel Sounds Present, Soft, Non Tender Extremities: No cyanosis, No edema Skin: - - Unchanged from previous Musculoskeletal: No Tenderness to Palpation of Joints or Extremities Lymphatic: No Cervical, Supraclavicular, or Inguinal Adenopathy Neurological: - - Patient lethargic, responds to touch. Currently nonverbal Psych/Mental Status: - - Restless at times but appears very weak. Vital Signs Temp Pulse Resp BP Pulse Ox 98.0 F 106 H 31 H 138/76 H 94 05/18/17 04:30 05/18/17 07:44 05/18/17 07:44 05/18/17 04:30 05/18/17 07:44 Oxygen Flow Rate 3 Oxygen Delivery Method Nasal Cannula Weight: 94 lb 2.198 oz Body Mass Index (BMI) 17.7 Intake and Output for Last 24 Hours 05/16/17 05/17/17 05/18/17 23:59 23:59 23:59 Intake Total 330 / 330 200 / 200 60 / 60 Output Total 2225 / 2225 550 / 550 375 / 375 Balance -1895 / -1895 -350 / -350 -315 / -315 Microbiology Past 72 Hours 05/17/17 04:45 Stool Occult Blood (DEREK) - Final Stool Laboratory Tests Past 24 Hrs 05/18/17 05/18/17 06:05 06:05 WBC 20.6 H RBC 5.21 Hgb 16.0 H Hct 47.1 H MCV 90.4 MCH 30.7 MCHC 34.0 RDW 13.7 RDW Differential 44.9 H Plt Count 201 MPV 10.5 Immature Gran % (Auto) 0.300 Neut % (Auto) 89.9 H Lymph % (Auto) 6.6 L [place] % (Auto) 3.1 Eos % (Auto) 0.0 Baso % (Auto) 0.1 Absolute Neuts (auto) 18.5 H Absolute Lymphs (auto) 1.37 Total Counted Not Reportable Sodium 134 L Potassium 5.7 H Chloride 98 Carbon Dioxide 27.0 Anion Gap 9 BUN 75 H Creatinine 1.17 H Estim Creat Clear Calc 27.14 Est GFR (MDRD) Af Amer 58 L Est GFR (MDRD) Non-Af 48 L BUN/Creatinine Ratio 64.1 H Glucose 170 H Calcium 9.4 Assessment/Plan Active and Suspected Problems (Last Updated 04/10/17 @ 08:50 by Lovely Buchanan) Influenza A (Acute) Acute on chronic respiratory failure with hypoxia (Acute) RECOMMENDATIONS 1. Wean oxygen supplementation to keep saturations 88-92%. 2. Encourage incentive spirometer and Acapella 3. Increase activity as tolerated, continue PT 4. Continue inhalers as ordered, pt does not tolerate aerosols 5. Continue oral steroids for now pending Hospice c/s 6. Droplet precautions, Tamiflu course completed 8. BiPAP per patient request 9. Bedside fan for air hunger 11. Consult Hospice IMPRESSIONS 1. Acute hypoxic respiratory failure secondary to COPD exacerbation secondary to influenza A Patient was recently treated for COPD exacerbation/pneumonia as evidenced on CTA of the chest last week when she presented to the ER. She had been on Levaquin and a prednisone taper as an outpatient. Blood cultures showed no growth. Hemoccult stool negative. She was positive for influenza A -subtype H3. Patient was advised she will likely have a protracted course given her baseline lung function and comorbidities, she and her both acknowledged understanding. Diuretic reintroduced 05/15. Patient has been weaned to her baseline requirement of 2-3 L, however she is still experiencing frequent dyspnea at rest, tachypnea, and conversational dyspnea. Encourage PRN use of BiPAP to assist with work of breathing, as patient notes significant improvement with use. No leukocytosis on 05/15, 05/17 her white count is 21,600. May be secondary to steroids, has been afebrile. Plan: Continue oral diuretic. Patient had Lasix 40 mg IV ?1 on 05/16. Monitor renal function, stable for now. Continue Ventolin scheduled and as needed, Symbicort, oral steroids. Patient currently maintaining saturations on her baseline oxygen requirement of 2-3 L, but does c/o dyspnea at rest. She feels worse today, feels very weak and does not want to eat. She did not eat anything yesterday after breakfast and did not eat this a.m. Continue to wean oxygen as tolerated to keep saturations 88-92%. Try bedside fan, possibly air hunger. Last echocardiogram in 2014 showed normal LV size and function, estimated EF of 65%, RVSP 42 mmHg, mild pulmonary hypertension. Will repeat to reassess function, possibly worsening leading to progressive dyspnea? 05/18: Patient with significant decline in function, poor oral intake and needing BiPAP more frequently. She is more lethargic and becoming very weak. She is experiencing significant air hunger despite attempts at optimal medical management. Discussed patient declined with , discussed CODE STATUS. Patient called his son and daughter, who came for meeting with Dr. Lopez, Reema Martínez, and myself. They have decided to speak with a post doctoral fellow and would like the patient to go to the inpatient hospice facility pending discussion with liaison. 2. Obstructive sleep apnea Patient tolerating BiPAP therapy better than she typically does, she is using at night and PRN rescue throughout the day. Encourage PRN use of BiPAP, as patient has significant subjective improvement with use. 3. Pulmonary hypertension Her last echocardiogram in March 2017 showed improvement in RVSP. Repeat echo today, symptoms are not improving. 4. Hyponatremia Resolved. IVF discontinued as patient is somewhat edematous. Follow BMP. 5. Hyperlipidemia/hypertension/hypothyroidism/deconditioning/chronic cystitis/advanced age Complicates care, management, recovery, and prognosis. Okay to continue her home medications as indicated. Management per hospitalist. Patient does take Elmiron, methenamine mandelate, and oxybutynin chronically for her cystitis. This note was generated with [employer] dictation software. It may contain incorrect words, spelling, and punctuation that were not noted in checking the note before signing.
[2017-05-18] MEDS: 0.9% Normal Saline 1,000 ML 30 ML IV (10:10)
[2017-05-18] MEDS: 0.9% NaCl Peripheral Flush Adult/Peds IV (10:53)
--- NOTE | 2017-05-18 11:39 | PCM.PROGNOTE ---
<David Henning - Last Filed: 05/18/17 11:39> Subjective: Pt is more lethargic today and feels her breathing is worse today. He notes she has not been very rousable this AM and is very weak, having difficulty with her pills. She has tolerated the BiPAP but the feels this is a bad sign as she normally is more alert and fights to have it off when she is improving. She is not speaking to me this morning, only answering yes or no. She reports continued dyspnea at rest with the bipap on. She does not have a cough. No fevers or chills overnight. The is unsure if he wants her intubated if she deteriorates. - Physical Exam General: Alert, Lethargic HEENT: Atraumatic, PERRLA, EOMI, Normocephalic Neck: Supple, No JVD, Negative Carotid Bruits Lungs: Diminished, Wheezes Cardiovascular: Regular rate, No murmurs Abdomen: Bowel Sounds Present, Soft, Non Tender Extremities: No edema, Capillary Refill Less than 3 Seconds Skin: No rashes, No breakdown Musculoskeletal: No Tenderness to Palpation of Joints or Extremities Neurological: Cranial nerves II-XII grossly intact Psych/Mental Status: Normal Affect Vital Signs Temp Pulse Resp BP Pulse Ox 97.9 F 112 H 28 H 149/88 H 95 05/18/17 10:16 05/18/17 11:06 05/18/17 10:53 05/18/17 10:16 05/18/17 10:53 Oxygen Flow Rate 3 Oxygen Delivery Method Bi-pap Weight: 42.7 kg Body Mass Index (BMI) 17.7 Intake and Output for Last 24 Hours 05/16/17 05/17/17 05/18/17 23:59 23:59 23:59 Intake Total 330 / 330 200 / 200 60 / 60 Output Total 2225 / 2225 550 / 550 375 / 375 Balance -1895 / -1895 -350 / -350 -315 / -315 Microbiology Past 72 Hours 05/17/17 04:45 Stool Occult Blood (DEREK) - Final Stool Laboratory Tests Past 24 Hrs 05/18/17 05/18/17 06:05 06:05 WBC 20.6 H RBC 5.21 Hgb 16.0 H Hct 47.1 H MCV 90.4 MCH 30.7 MCHC 34.0 RDW 13.7 RDW Differential 44.9 H Plt Count 201 MPV 10.5 Immature Gran % (Auto) 0.300 Neut % (Auto) 89.9 H Lymph % (Auto) 6.6 L [place] % (Auto) 3.1 Eos % (Auto) 0.0 Baso % (Auto) 0.1 Absolute Neuts (auto) 18.5 H Absolute Lymphs (auto) 1.37 Total Counted Not Reportable Sodium 134 L Potassium 5.7 H Chloride 98 Carbon Dioxide 27.0 Anion Gap 9 BUN 75 H Creatinine 1.17 H Estim Creat Clear Calc 27.14 Est GFR (MDRD) Af Amer 58 L Est GFR (MDRD) Non-Af 48 L BUN/Creatinine Ratio 64.1 H Glucose 170 H Calcium 9.4 Assessment/Plan 1. Acute COPD exacerbation 2/2 influenza A with acute on chronic hypoxic respiratory failure - currently doing poorly on BiPAP. Pulm following. Continue steroids, aerosols, bipap as tolerated. Repeat CXR has hyperinflation. -recently on levaquin for pna -10 day course tamiflu -baseline O2 is 2lpm -Prognosis is poor, is considering palliative. 2. RALF - creatinine trending up again, will DC triamterene/hctz and give very slow IV fluids to avoid fluid overload which she has a hx of. She has very little PO intake and appears dry. 3. Severe protein malnutrition - complicated by lethargy and poor PO ability. 4. MERISSA - bipap 5. HLD -statin 6. Debility - PTOT if she recovers strength 7. Anx - home meds 8. GERD - PPI as no change in hgb and stool occult blood neg (see #11) 9. Hyperkalemia - kayex - if she will take it. IV fluids. Monitor. 10. Pulm HTN - complicating above course 11. Reported stool with blood 2 nights ago. No change in hgb. Stool occult negative. back to po PPI. DVT ppx: heparin. DC planning: possible palliative care. Pt not improving. This patient was seen by David Henning PA-C under the supervision of Doctor Ohara. <Lesly Ohara E - Last Filed: 05/18/17 15:33> - Physical Exam Vital Signs Temp Pulse Resp BP Pulse Ox 98.4 F 112 H 38 H 149/80 H 92 05/18/17 14:29 05/18/17 14:29 05/18/17 14:29 05/18/17 14:29 05/18/17 14:29 Oxygen Flow Rate 3 Oxygen Delivery Method Bi-pap Weight: 94 lb 2.198 oz Body Mass Index (BMI) 17.7 Intake and Output for Last 24 Hours 05/16/17 05/17/17 05/18/17 23:59 23:59 23:59 Intake Total 330 / 330 200 / 200 140 / 140 Output Total 2225 / 2225 550 / 550 575 / 575 Balance -1895 / -1895 -350 / -350 -435 / -435 Microbiology Past 72 Hours 05/17/17 04:45 Stool Occult Blood (DEREK) - Final Stool Laboratory Tests Past 24 Hrs 05/18/17 05/18/17 06:05 06:05 WBC 20.6 H RBC 5.21 Hgb 16.0 H Hct 47.1 H MCV 90.4 MCH 30.7 MCHC 34.0 RDW 13.7 RDW Differential 44.9 H Plt Count 201 MPV 10.5 Immature Gran % (Auto) 0.300 Neut % (Auto) 89.9 H Lymph % (Auto) 6.6 L [place] % (Auto) 3.1 Eos % (Auto) 0.0 Baso % (Auto) 0.1 Absolute Neuts (auto) 18.5 H Absolute Lymphs (auto) 1.37 Total Counted Not Reportable Sodium 134 L Potassium 5.7 H Chloride 98 Carbon Dioxide 27.0 Anion Gap 9 BUN 75 H Creatinine 1.17 H Estim Creat Clear Calc 27.14 Est GFR (MDRD) Af Amer 58 L Est GFR (MDRD) Non-Af 48 L BUN/Creatinine Ratio 64.1 H Glucose 170 H Calcium 9.4 Assessment/Plan I am seeing this patient in conjunction with David Henning. I independently seen and examined the patient. Progress note above and I agree with above treatment plan. Patient seen and examined. Patient remained dyspneic and tachypneic, still requiring BiPAP with no significant improvement. This morning, they had a family meeting and after discussion with the hotel front desk clerk, they decided to go to hospice and medical facility. - Physical Exam General: Alert, Oriented x3, Cooperative, short of breath. HEENT: Atraumatic, PERRLA, EOMI. Neck: Supple, No JVD, Negative Carotid Bruits, Trachea Midline, Thyroid Normal. Lungs: Decreased breath sounds bilaterally, scattered rhonchi, no wheeze, No rales, short of breath, using accessory muscles of respiration. Cardiovascular: Regular rate, Regular Rhythm, tachycardia, normal S1, Normal S2, PMI Normal. Abdomen: Bowel Sounds Present, Soft, Non Tender, Non-Distended, No Hepato-splenomegaly. Extremities: No clubbing, No cyanosis, No edema Skin: No rashes, No breakdown Neurological: Neuro grossly intact. Assessment and plan: #1 acute COPD exacerbation: She is on oral prednisone, bronchodilators and Tamiflu for influenza A which is likely the triggering factor. Remained on BiPAP without improvement. Family elected to go to hospice medical facility. #2 acute on chronic hypoxic respiratory failure: Secondary to above. Remained on BiPAP without improvement. #3 influenza A: Continue Tamiflu. #4 acute kidney injury: Secondary to dehydration, poor oral intake. She was on IV fluids, gentle hydration, most recent creatinine is 0.82, kidney function improved. #5 other chronic medical problems: Hyperlipidemia, hypertension, hypothyroidism, GERD, obstructive sleep apnea, continue current medications. This note was generated with [employer]umi dictation software. It may contain incorrect words, spelling, and punctuation that were not noted in checking the note before signing.
--- NOTE | 2017-05-18 11:53 | PN_ITS ---
<David Henning - Last Filed: 05/18/17 11:39> Subjective: Pt is more lethargic today and feels her breathing is worse today. He notes she has not been very rousable this AM and is very weak, having difficulty with her pills. She has tolerated the BiPAP but the feels this is a bad sign as she normally is more alert and fights to have it off when she is improving. She is not speaking to me this morning, only answering yes or no. She reports continued dyspnea at rest with the bipap on. She does not have a cough. No fevers or chills overnight. The is unsure if he wants her intubated if she deteriorates. - Physical Exam General: Alert, Lethargic HEENT: Atraumatic, PERRLA, EOMI, Normocephalic Neck: Supple, No JVD, Negative Carotid Bruits Lungs: Diminished, Wheezes Cardiovascular: Regular rate, No murmurs Abdomen: Bowel Sounds Present, Soft, Non Tender Extremities: No edema, Capillary Refill Less than 3 Seconds Skin: No rashes, No breakdown Musculoskeletal: No Tenderness to Palpation of Joints or Extremities Neurological: Cranial nerves II-XII grossly intact Psych/Mental Status: Normal Affect Vital Signs Temp Pulse Resp BP Pulse Ox 97.9 F 112 H 28 H 149/88 H 95 05/18/17 10:16 05/18/17 11:06 05/18/17 10:53 05/18/17 10:16 05/18/17 10:53 Oxygen Flow Rate 3 Oxygen Delivery Method Bi-pap Weight: 42.7 kg Body Mass Index (BMI) 17.7 Intake and Output for Last 24 Hours 05/16/17 05/17/17 05/18/17 23:59 23:59 23:59 Intake Total 330 / 330 200 / 200 60 / 60 Output Total 2225 / 2225 550 / 550 375 / 375 Balance -1895 / -1895 -350 / -350 -315 / -315 Microbiology Past 72 Hours 05/17/17 04:45 Stool Occult Blood (DEREK) - Final Stool Laboratory Tests Past 24 Hrs 05/18/17 05/18/17 06:05 06:05 WBC 20.6 H RBC 5.21 Hgb 16.0 H Hct 47.1 H MCV 90.4 MCH 30.7 MCHC 34.0 RDW 13.7 RDW Differential 44.9 H Plt Count 201 MPV 10.5 Immature Gran % (Auto) 0.300 Neut % (Auto) 89.9 H Lymph % (Auto) 6.6 L Andrew % (Auto) 3.1 Eos % (Auto) 0.0 Baso % (Auto) 0.1 Absolute Neuts (auto) 18.5 H Absolute Lymphs (auto) 1.37 Total Counted Not Reportable Sodium 134 L Potassium 5.7 H Chloride 98 Carbon Dioxide 27.0 Anion Gap 9 BUN 75 H Creatinine 1.17 H Estim Creat Clear Calc 27.14 Est GFR (MDRD) Af Amer 58 L Est GFR (MDRD) Non-Af 48 L BUN/Creatinine Ratio 64.1 H Glucose 170 H Calcium 9.4 Assessment/Plan 1. Acute COPD exacerbation 2/2 influenza A with acute on chronic hypoxic respiratory failure - currently doing poorly on BiPAP. Pulm following. Continue steroids, aerosols, bipap as tolerated. Repeat CXR has hyperinflation. -recently on levaquin for pna -10 day course tamiflu -baseline O2 is 2lpm -Prognosis is poor, is considering palliative. 2. RALF - creatinine trending up again, will DC triamterene/hctz and give very slow IV fluids to avoid fluid overload which she has a hx of. She has very little PO intake and appears dry. 3. Severe protein malnutrition - complicated by lethargy and poor PO ability. 4. MERISSA - bipap 5. HLD -statin 6. Debility - PTOT if she recovers strength 7. Anx - home meds 8. GERD - PPI as no change in hgb and stool occult blood neg (see #11) 9. Hyperkalemia - kayex - if she will take it. IV fluids. Monitor. 10. Pulm HTN - complicating above course 11. Reported stool with blood 2 nights ago. No change in hgb. Stool occult negative. back to po PPI. DVT ppx: heparin. DC planning: possible palliative care. Pt not improving. This patient was seen by David Henning PA-C under the supervision of Doctor Ohara. <Lesly Ohara E - Last Filed: 05/18/17 15:33> - Physical Exam Vital Signs Temp Pulse Resp BP Pulse Ox 98.4 F 112 H 38 H 149/80 H 92 05/18/17 14:29 05/18/17 14:29 05/18/17 14:29 05/18/17 14:29 05/18/17 14:29 Oxygen Flow Rate 3 Oxygen Delivery Method Bi-pap Weight: 94 lb 2.198 oz Body Mass Index (BMI) 17.7 Intake and Output for Last 24 Hours 05/16/17 05/17/17 05/18/17 23:59 23:59 23:59 Intake Total 330 / 330 200 / 200 140 / 140 Output Total 2225 / 2225 550 / 550 575 / 575 Balance -1895 / -1895 -350 / -350 -435 / -435 Microbiology Past 72 Hours 05/17/17 04:45 Stool Occult Blood (DEREK) - Final Stool Laboratory Tests Past 24 Hrs 05/18/17 05/18/17 06:05 06:05 WBC 20.6 H RBC 5.21 Hgb 16.0 H Hct 47.1 H MCV 90.4 MCH 30.7 MCHC 34.0 RDW 13.7 RDW Differential 44.9 H Plt Count 201 MPV 10.5 Immature Gran % (Auto) 0.300 Neut % (Auto) 89.9 H Lymph % (Auto) 6.6 L Andrew % (Auto) 3.1 Eos % (Auto) 0.0 Baso % (Auto) 0.1 Absolute Neuts (auto) 18.5 H Absolute Lymphs (auto) 1.37 Total Counted Not Reportable Sodium 134 L Potassium 5.7 H Chloride 98 Carbon Dioxide 27.0 Anion Gap 9 BUN 75 H Creatinine 1.17 H Estim Creat Clear Calc 27.14 Est GFR (MDRD) Af Amer 58 L Est GFR (MDRD) Non-Af 48 L BUN/Creatinine Ratio 64.1 H Glucose 170 H Calcium 9.4 Assessment/Plan I am seeing this patient in conjunction with David Henning. I independently seen and examined the patient. Progress note above and I agree with above treatment plan. Patient seen and examined. Patient remained dyspneic and tachypneic, still requiring BiPAP with no significant improvement. This morning, they had a family meeting and after discussion with the liberal arts teacher, they decided to go to hospice and medical facility. - Physical Exam General: Alert, Oriented x3, Cooperative, short of breath. HEENT: Atraumatic, PERRLA, EOMI. Neck: Supple, No JVD, Negative Carotid Bruits, Trachea Midline, Thyroid Normal. Lungs: Decreased breath sounds bilaterally, scattered rhonchi, no wheeze, No rales, short of breath, using accessory muscles of respiration. Cardiovascular: Regular rate, Regular Rhythm, tachycardia, normal S1, Normal S2 , PMI Normal. Abdomen: Bowel Sounds Present, Soft, Non Tender, Non-Distended, No Hepato- splenomegaly. Extremities: No clubbing, No cyanosis, No edema Skin: No rashes, No breakdown Neurological: Neuro grossly intact. Assessment and plan: #1 acute COPD exacerbation: She is on oral prednisone, bronchodilators and Tamiflu for influenza A which is likely the triggering factor. Remained on BiPAP without improvement. Family elected to go to hospice medical facility. #2 acute on chronic hypoxic respiratory failure: Secondary to above. Remained on BiPAP without improvement. #3 influenza A: Continue Tamiflu. #4 acute kidney injury: Secondary to dehydration, poor oral intake. She was on IV fluids, gentle hydration, most recent creatinine is 0.82, kidney function improved. #5 other chronic medical problems: Hyperlipidemia, hypertension, hypothyroidism , GERD, obstructive sleep apnea, continue current medications. This note was generated with [employer] dictation software. It may contain incorrect words, spelling, and punctuation that were not noted in checking the note before signing.
--- NOTE | 2017-05-18 13:05 | CASEMGMT ---
Patient will be going to the inpatient Hospice unit. ALEX called [facility] and let Geraldine know this information. Plan: d/c to Hospice Inpatient Facility. Shalonda ADAMSON
--- NOTE | 2017-05-18 13:15 | PCM.DC.SUM ---
<David Henning - Last Filed: 05/18/17 13:15> Discharge Date and Diagnosis Date of Admission: 05/13/17 Date of Discharge: 05/18/17 - Primary Discharge Diagnosis Active and Suspected Problems (Last Updated 04/10/17 @ 08:50 by Lovely Buchanan) Influenza A (Acute) Acute on chronic respiratory failure with hypoxia (Acute) 2/2 influenza A Acute COPD exacerbation Severe protein malnutrition MERISSA RALF HLD Debility Anxiety GERD Pulm HTN - Secondary Discharge Diagnosis Chronic Problems (Last Updated 04/10/17 @ 08:50 by Lovely Buchanan) Costal chondritis (Chronic) Hypersomnia (Chronic) Dyspnea (Chronic) Stage 3 severe COPD by GOLD classification (Chronic) Physical deconditioning (Chronic) Pulmonary hypertension (Chronic) Chronic hypoxemic respiratory failure (Chronic) Obstructive sleep apnea (Chronic) on home BiPap machine Interstitial cystitis (Chronic) not currently on medicine Hyperlipidemia (Chronic) Hypertension (Chronic) Hypothyroidism (Chronic) off synthroid due to elevated T4 Hospital Course and Treatment Imaging Results: RAD/Chest 1 View (Portable) IMPRESSION: No acute disease is demonstrated. RAD/Chest PA and Lateral IMPRESSION: Stable chest, no acute cardiopulmonary disease. COPD. RAD/Chest 1 View (Portable) IMPRESSION: Hyperinflation. No acute abnormality is seen. Calcific tendinitis of the right shoulder. John - pulm Operations: None Procedures: None Summary of Care Provided: Physical exam on day of discharge: See daily progress note Hospital course: The patient is a 76 year old F who presented to the emergency room with increased dyspnea at rest and worse with exertion. She had recently been diagnosed with pneumonia and it completed outpatient Levaquin therapy. She has a history of severe COPD, obstructive sleep apnea, and pulmonary hypertension. She is admitted to the hospital with acute on chronic hypoxic respiratory failure, acute COPD exacerbation, and acute kidney injury as her creatinine have been elevated likely secondary to recently starting Lasix. She tested positive for influenza A. She was treated with Tamiflu, Solu-Medrol, aerosols, BiPAP, and IV fluids, her nephrotoxic agents were held. The patient experienced very little improvement. Multiple chest x-rays were done and did not reveal any underlying process. She was very weak and had difficult time taking care of herself, she could barely lift her arms to take her medications. She became more lethargic. Her renal function initially improved but attempts to restart her medications were met with worsened renal function. She had very poor prognosis and palliative care was discussed. She continued to not improve and became more lethargic. After multiple discussions it was decided that she would go to inpatient hospice. Arrangements were made and later that day she was discharged to inpatient hospice. This patient was seen by David Henning PA-C under the supervision of Doctor Ohara. Discharge Diet: No Restrictions Discharge Activity: - - as directed by hospice Home Medications: Medications to take at Discharge Amlodipine [Norvasc] 5 mg PO QHS 07/23/16 Atorvastatin Calcium [Lipitor] 20 mg PO QHS 07/23/16 Budesonide/Formoterol 160/4.5 [Symbicort 160/4.5 Mcg Inhaler (SP)] 2 puff INHALATION BID 07/23/16 Carvedilol [Coreg (Beta [place])] 12.5 mg PO BID 07/23/16 Albuterol IH (ProAir) [Proair Hfa] 1 - 2 puff INHALATION Q6H PRN PRN 07/28/16 Calcium Carbonate [Calcium] 600 mg PO QHS 07/28/16 Multivitamin [Multiple Vitamins] 1 ea PO QHS 07/28/16 Ascorbic Acid [C-1000] 1,000 mg PO DAILY 12/05/16 Lansoprazole [Prevacid] 15 mg PO DAILY 12/05/16 Methenamine Mandelate 1 gm PO DAILY 12/05/16 mometasone 110 mcg (30 doses) breath activated powder inhaler 2 inh INHALATION BID 04/10/17 benzonatate 100 mg capsule 100 mg PO TID PRN #90 cap 05/03/17 Guaifenesin/Dextromethorphan [Mucinex Dm ER 1,200-60 mg Tab] 1 each PO QHS 05/04/17 Oxybutynin Chloride [Ditropan Xl] 5 mg PO DAILY 05/04/17 Prednisone 10 mg PO QDAY 05/04/17 Triamterene 75MG/Hctz 50MG 0.5 tab PO DAILY 05/04/17 Clonazepam [Klonopin] 0.5 mg PO DAILY PRN PRN #5 tab 12/31/17 Pentosan Polysulfate Sodium [Elmiron] 100 mg PO BID 05/13/17 Primary Care Physician: Chicho Garcia DO [Primary Care Provider] - Disposition: Hospice Medical Facility Minutes spent on discharge:: 40 Patient Condition:: Poor Meaningful Use Info Meaningful Use Diagnoses (Choose all that apply): None applicable <Lesly Ohara - Last Filed: 05/18/17 16:21> Discharge Date and Diagnosis - Primary Discharge Diagnosis #1 acute COPD exacerbation triggered by influenza A. #2 acute influenza A infection. #3 acute on chronic hypoxic respiratory failure. #4 severe protein calorie medication. #5 mild acute kidney injury. - Secondary Discharge Diagnosis Chronic Problems (Last Updated 04/10/17 @ 08:50 by Lovely Buchanan) Costal chondritis (Chronic) Hypersomnia (Chronic) Dyspnea (Chronic) Stage 3 severe COPD by GOLD classification (Chronic) Physical deconditioning (Chronic) Pulmonary hypertension (Chronic) Chronic hypoxemic respiratory failure (Chronic) Obstructive sleep apnea (Chronic) on home BiPap machine Interstitial cystitis (Chronic) not currently on medicine Hyperlipidemia (Chronic) Hypertension (Chronic) Hypothyroidism (Chronic) off synthroid due to elevated T4 Hospital Course and Treatment Imaging Results: Clinical Impression(s) from Imaging Studies Chest X-Ray 05/13/17 15:03 IMPRESSION: No acute disease is demonstrated. Electronically Signed: Rolanda Madrid MD at 16:42 EST cf, Service support , Chest X-Ray 05/14/17 05:55 IMPRESSION: Stable chest, no acute cardiopulmonary disease. COPD. Electronically Signed: Dimitri Kirby MD at 7:58 EST , Service support , Chest X-Ray 05/16/17 12:06 IMPRESSION: Hyperinflation. No acute abnormality is seen. Calcific tendinitis of the right shoulder. Electronically Signed: Gamaliel Tejada MD at 15:17 EST Tel [phone], Service support , Summary of Care Provided: Hospitalist note: Discharge summary above reviewed and I agree with the above discharge plan with additions as above. Patient was admitted for acute COPD exacerbation triggered by influenza A in context of history of chronic respiratory failure being on home oxygen. She was treated with steroids, bronchodilators and Tamiflu As well as BiPAP. Her ABG revealed pH of 7.37, PCO2 of 48 and PCO2 of 74. She was continued on steroids, bronchodilators on BiPAP. Patient remained very short of breath, dyspneic and tachypneic while off BiPAP. There was no significant improvement. Chest x-ray repeated and again showing no acute findings. Pulmonology consulted and recommended to continue same treatment. In spite of aggressive measures including BiPAP, chest physiotherapy and incentive spirometer, patient remained dependent on BiPAP and her pulse ox drops once she is taken off BiPAP and she becomes very dyspneic and tachypneic. On the day of discharge, patient's family gathered and after discussion, they decided to go hospice and palliative care. Patient was already involved and palliative care but not hospice. Patient was evaluated by hospice team and patient and her family agreed to go to hospice and medical facility. Patient discharged to hospice and medical facility in a guarded condition with poor prognosis. . Code Visit Inpatient E&M: 94820 Disch Hosp
--- NOTE | 2017-05-18 13:24 | DS.PCM_ITS ---
<David Henning - Last Filed: 05/18/17 13:15> Discharge Date and Diagnosis Date of Admission: 05/13/17 Date of Discharge: 05/18/17 - Primary Discharge Diagnosis Active and Suspected Problems (Last Updated 04/10/17 @ 08:50 by Lovely Buchanan) Influenza A (Acute) Acute on chronic respiratory failure with hypoxia (Acute) 2/2 influenza A Acute COPD exacerbation Severe protein malnutrition MERISSA [facility]ALF HLD Debility Anxiety GERD Pulm HTN - Secondary Discharge Diagnosis Chronic Problems (Last Updated 04/10/17 @ 08:50 by Lovely Buchanan) Costal chondritis (Chronic) Hypersomnia (Chronic) Dyspnea (Chronic) Stage 3 severe COPD by GOLD classification (Chronic) Physical deconditioning (Chronic) Pulmonary hypertension (Chronic) Chronic hypoxemic respiratory failure (Chronic) Obstructive sleep apnea (Chronic) on home BiPap machine Interstitial cystitis (Chronic) not currently on medicine Hyperlipidemia (Chronic) Hypertension (Chronic) Hypothyroidism (Chronic) off synthroid due to elevated T4 Hospital Course and Treatment Imaging Results: RAD/Chest 1 View (Portable) IMPRESSION: No acute disease is demonstrated. RAD/Chest PA and Lateral IMPRESSION: Stable chest, no acute cardiopulmonary disease. COPD. RAD/Chest 1 View (Portable) IMPRESSION: Hyperinflation. No acute abnormality is seen. Calcific tendinitis of the right shoulder. John - pulm Operations: None Procedures: None Summary of Care Provided: Physical exam on day of discharge: See daily progress note Hospital course: The patient is a 76 year old F who presented to the emergency room with increased dyspnea at rest and worse with exertion. She had recently been diagnosed with pneumonia and it completed outpatient Levaquin therapy. She has a history of severe COPD, obstructive sleep apnea, and pulmonary hypertension. She is admitted to the hospital with acute on chronic hypoxic respiratory failure, acute COPD exacerbation, and acute kidney injury as her creatinine have been elevated likely secondary to recently starting Lasix. She tested positive for influenza A. She was treated with Tamiflu, Solu-Medrol, aerosols, BiPAP, and IV fluids, her nephrotoxic agents were held. The patient experienced very little improvement. Multiple chest x-rays were done and did not reveal any underlying process. She was very weak and had difficult time taking care of herself, she could barely lift her arms to take her medications. She became more lethargic. Her renal function initially improved but attempts to restart her medications were met with worsened renal function. She had very poor prognosis and palliative care was discussed. She continued to not improve and became more lethargic. After multiple discussions it was decided that she would go to inpatient hospice. Arrangements were made and later that day she was discharged to inpatient hospice. This patient was seen by David Henning PA-C under the supervision of Doctor Ohara. Discharge Diet: No Restrictions Discharge Activity: - - as directed by hospice Home Medications: Medications to take at Discharge Amlodipine [Norvasc] 5 mg PO QHS 07/23/16 Atorvastatin Calcium [Lipitor] 20 mg PO QHS 07/23/16 Budesonide/Formoterol 160/4.5 [Symbicort 160/4.5 Mcg Inhaler (SP)] 2 puff INHALATION BID 07/23/16 Carvedilol [Coreg (Beta [place])] 12.5 mg PO BID 07/23/16 Albuterol IH (ProAir) [Proair Hfa] 1 - 2 puff INHALATION Q6H PRN PRN 07/28/16 Calcium Carbonate [Calcium] 600 mg PO QHS 07/28/16 Multivitamin [Multiple Vitamins] 1 ea PO QHS 07/28/16 Ascorbic Acid [C-1000] 1,000 mg PO DAILY 12/05/16 Lansoprazole [Prevacid] 15 mg PO DAILY 12/05/16 Methenamine Mandelate 1 gm PO DAILY 12/05/16 mometasone 110 mcg (30 doses) breath activated powder inhaler 2 inh INHALATION BID 04/10/17 benzonatate 100 mg capsule 100 mg PO TID PRN #90 cap 05/03/17 Guaifenesin/Dextromethorphan [Mucinex Dm ER 1,200-60 mg Tab] 1 each PO QHS 05/04 Oxybutynin Chloride [Ditropan Xl] 5 mg PO DAILY 05/04/17 Prednisone 10 mg PO QDAY 05/04/17 Triamterene 75MG/Hctz 50MG 0.5 tab PO DAILY 05/04/17 Clonazepam [Klonopin] 0.5 mg PO DAILY PRN PRN #5 tab 12/31/17 Pentosan Polysulfate Sodium [Elmiron] 100 mg PO BID 05/13/17 Primary Care Physician: Chicho Garcia DO [Primary Care Provider] - Disposition: Hospice Medical Facility Minutes spent on discharge:: 40 Patient Condition:: Poor Meaningful Use Info Meaningful Use Diagnoses (Choose all that apply): None applicable <Lesly Ohara - Last Filed: 05/18/17 16:21> Discharge Date and Diagnosis - Primary Discharge Diagnosis #1 acute COPD exacerbation triggered by influenza A. #2 acute influenza A infection. #3 acute on chronic hypoxic respiratory failure. #4 severe protein calorie medication. #5 mild acute kidney injury. - Secondary Discharge Diagnosis Chronic Problems (Last Updated 04/10/17 @ 08:50 by Lovely Buchanan) Costal chondritis (Chronic) Hypersomnia (Chronic) Dyspnea (Chronic) Stage 3 severe COPD by GOLD classification (Chronic) Physical deconditioning (Chronic) Pulmonary hypertension (Chronic) Chronic hypoxemic respiratory failure (Chronic) Obstructive sleep apnea (Chronic) on home BiPap machine Interstitial cystitis (Chronic) not currently on medicine Hyperlipidemia (Chronic) Hypertension (Chronic) Hypothyroidism (Chronic) off synthroid due to elevated T4 Hospital Course and Treatment Imaging Results: Clinical Impression(s) from Imaging Studies Chest X-Ray 05/13/17 15:03 IMPRESSION: No acute disease is demonstrated. Electronically Signed: Rolanda Madrid MD at 16:42 EST cf, Service support , Chest X-Ray 05/14/17 05:55 IMPRESSION: Stable chest, no acute cardiopulmonary disease. COPD. Electronically Signed: Dimitri Kirby MD at 7:58 EST , Service support , Chest X-Ray 05/16/17 12:06 IMPRESSION: Hyperinflation. No acute abnormality is seen. Calcific tendinitis of the right shoulder. Electronically Signed: Gamaliel Tejada MD at 15:17 EST Tel [phone], Service support , Summary of Care Provided: Hospitalist note: Discharge summary above reviewed and I agree with the above discharge plan with additions as above. Patient was admitted for acute COPD exacerbation triggered by influenza A in context of history of chronic respiratory failure being on home oxygen. She was treated with steroids, bronchodilators and Tamiflu As well as BiPAP. Her ABG revealed pH of 7.37, PCO2 of 48 and PCO2 of 74. She was continued on steroids, bronchodilators on BiPAP. Patient remained very short of breath, dyspneic and tachypneic while off BiPAP. There was no significant improvement. Chest x-ray repeated and again showing no acute findings. Pulmonology consulted and recommended to continue same treatment. In spite of aggressive measures including BiPAP, chest physiotherapy and incentive spirometer, patient remained dependent on BiPAP and her pulse ox drops once she is taken off BiPAP and she becomes very dyspneic and tachypneic. On the day of discharge, patient's family gathered and after discussion, they decided to go hospice and palliative care. Patient was already involved and palliative care but not hospice. Patient was evaluated by hospice team and patient and her family agreed to go to hospice and medical facility. Patient discharged to hospice and medical facility in a guarded condition with poor prognosis. . Code Visit Inpatient E&M: 03019 Disch Hosp
--- NOTE | 2017-05-18 13:29 | NURSING ---
REPORT CALLED TO ARIEL ANGELES AT THE [facility] AT [facility].
== END 2017-05-18 14:18 | disposition hospice, inpatient (51) | DRG 193 ==
LOC: ED 17:42 → PCU 17:55
PROVIDERS: Internal Medicine; Internal Medicine Critical Care Medicine; Nurse Practitioner Family; Admitting Provider Family Medicine; Emergency Provider Emergency Medicine; Family Provider Preventive Medicine Occupational Medicine; PCP Preventive Medicine Occupational Medicine; Visit Provider Hospitalist
DX: J10.1 Influenza due to other identified influenza virus with other respiratory manifestations (principal); E43 Unspecified severe protein-calorie malnutrition; J96.21 Acute and chronic respiratory failure with hypoxia; N17.9 Acute kidney failure, unspecified; I50.9 Heart failure, unspecified; I27.20 Pulmonary hypertension, unspecified; I11.0 Hypertensive heart disease with heart failure; E87.5 Hyperkalemia; E86.0 Dehydration; J44.1 Chronic obstructive pulmonary disease with (acute) exacerbation; Z68.1 Body mass index [BMI] 19.9 or less, adult; E87.1 Hypo-osmolality and hyponatremia; E78.5 Hyperlipidemia, unspecified; G47.33 Obstructive sleep apnea (adult) (pediatric); Z99.81 Dependence on supplemental oxygen; E03.9 Hypothyroidism, unspecified; F41.9 Anxiety disorder, unspecified; K21.9 Gastro-esophageal reflux disease without esophagitis; N32.81 Overactive bladder; Z79.899 Other long term (current) drug therapy; Z51.5 Encounter for palliative care
CPT/HCPCS: 36415; 36600; 51702; 71045; 71046; 80048; 80053; 81001; 82274; 82803; 83605; 83690; 84443; 84484; 85025; 85027; 85610; 85730; 87040; 87633; 87804; 93005; 94002; 94003; 94640; 94667; 94668; 97110; 97162; 97166; 97530; 97535; 97802; 99285; J7030; J7040; J7050; A4216; J1940; J2405; J3490